=== PATIENT | female | born 2000 | race Caucasian/White ===

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

== ENCOUNTER 2020-08-12 12:07 | Emergency (ER) | payer MEDICAID, SELFPAY ==
[2020-08-12 12:08] VITALS: BP 121/77; PULSE 87; RESP 16; TEMP 37.2; O2SAT 100; BMI 29.0
--- NOTE | 2020-08-12 12:38 | ED.VIS.GEN ---
History of Present Illness Chief Complaint: General Illness Informant: Patient Onset: Days Context: Sudden Onset Timing: Continuous Quality: Upper viral respiratory symptoms with loss of taste and smell Location: Respiratory Current Severity: Mild Maximum Severity: Moderate Worsened by: Dyspnea on exertion Relieved by: Nothing Associated Symptoms: Subjective fever, arthralgia no energy Narrative: Patient is a 20-year-old who presents because of lack of energy, subjective fever, rhinorrhea, loss of taste and smell, cough, shortness of breath and dyspnea on exertion. Onset of illness 2 days ago. Onset of loss of taste and smell within the past 24 hours. She states she wears her mask at all times. She does work. She denies GI symptoms. She denies symptoms. She denies photophobia, neck pain or neck stiffness. Prior similar symptoms: No Recent Illness/Hospitalization: No - Past Medical History (1) No significant past medical history Status: Acute Past Medical History - Allergies and Home Meds Allergies/Adverse Reactions: Allergies No Known Allergies Allergy (Verified 08/12/20 12:16) Primary Care Physician: Niki Whitman NP, WAREHOUSE PRICING AND INVENTORY CLERK-C [Primary Care Provider] - Prior records reviewed: Yes Past Medical History: None Surgical History: no surgical history Lives: With Family Smoking Status: Never smoker Alcohol: None Drugs: None Review of Systems General: Reports: Fever, Malaise, Subjective. Denies: Chills, Sweats, Weight loss Eyes: Denies: Visual changes - bilaterally, Blurred Vision - bilaterally ENT: Reports: Rhinorrhea, - - Of taste and smell. Denies: Bilateral ear pain, Sore throat Cardiovascular: Denies: Chest pain, Palpitations Respiratory: Reports: Dyspnea, Cough, Dyspnea on exertion. Denies: Sputum, Orthopnea, Paroxysmal nocturnal dyspnea Gastrointestinal: Denies: Abdominal pain, Nausea, Vomiting, Diarrhea, Melena, Hematochezia Genitourinary: Denies: Dysuria, Hematuria, Frequency Musculoskeletal: Reports: Myalgias, Neck pain, Back pain, Swelling, Extremity Pain. Denies: Arthralgias Skin: Denies: Rash, Wounds Neurological: Reports: Weakness. Denies: Parasthesia, Numbness Endocrine: Denies: Polyuria, Polydipsia Hematologic: Denies: Easy bruising Physical Exam Vital Signs/Narrative: Vital Signs Temp Pulse Resp BP Pulse Ox 08/12/20 12:08 98.9 F 87 16 121/77 H 100 Inital Vital Signs reviewed: Yes General: Well nourished, Well developed, No Acute Distress, - - Appears ill but not toxic. Head: Normocephalic, Atraumatic Eyes: Perrl, EOMI. Negative for: Pale conjunctiva, Scleral icterus ENT: Moist mucous membranes, No rhinorrhea, TM's clear Neck: Supple, Nontender, No lymphadenopathy, No JVD Cardiovascular: Regular rate, Regular rhythm, No murmurs, Normal S1, Normal S2 Respiratory: No distress, CTA bilaterally, Chest nontender Abdomen: Soft, Nontender, Nondistended, Normal bowel sounds Back: Nontender, Normal Inspection. Negative for: CVA tenderness Extremities: Nontender, No edema Skin: Normal color, No rash, No Trauma. Negative for: Cyanosis, Diaphoresis, Jaundice Neurological: Alert, Oriented x3, Cranial nerves II-XII grossly intact, Normal Strength, Normal Sensation Psychological: Normal affect, Normal Mood Diagnostic/Tx/Re-eval Chest X-Ray - ED: 1 View, Read by ED Physician, Normal, Heart, Lungs, Mediastinum, Bony Structures, No Acute Disease - Rhythm Strip Rhythm Strip: Sinus Rhythm Rate: 82 Ectopy: None - Medical Decision Making Patient presents with viral upper respiratory symptoms. With loss of taste and smell patient in all probability has Covid. Because she complains of dyspnea dyspnea exertion chest x-ray was obtained. Covid test was obtained. Since patient vital signs are essentially unremarkable and she is not hypoxic with normal chest x-ray be discharged home to self quarantine and appropriate home instructions for Covid. She was told she has Covid. She has Covid even if her Covid test is negative since there are false negatives. Patient has symptoms that are consistent with Covid. ED Disposition - Plan for ED Patient: Disposition: Home or Assisted Living Diagnosis: COVID-19 virus infection Referrals: Niki Whitman NP, WAREHOUSE PRICING AND INVENTORY CLERK-C [Primary Care Provider] - As Needed Additional Instructions: 1. If you have increased shortness of breath, unable to walk from room to room return to the emergency department. 2. You need to self quarantine for 10 days. Even if you have a negative Covid test you do have Covid based on your symptoms.
--- NOTE | 2020-08-12 13:15 | RAD_ITS ---
STUDY: X-RAY CHEST REASON FOR EXAM: Female, 20 years old. Loss of taste and smell, no other symptoms TECHNIQUE: Single AP portable view of the chest. COMPARISON: Comparison is made with prior study dated 04/12/2018. FINDINGS: The lungs are clear and expanded. There is no demonstrated pleural abnormality. Normal size heart. Normal mediastinum and sulaiman. Normal visualized pulmonary arteries. Normal visualized aortic arch and descending thoracic aorta. Normal visualized thoracic spine. Normal visualized ribs, clavicles, and shoulders. There is no demonstrated abnormality of the visualized soft tissue structures of the upper abdomen. RAD/Chest 1 View (Portable) IMPRESSION: Normal x-ray examination of the chest. Electronically Signed: Mauro Baird, at 13:28 EST , Service support ,
[2020-08-12 15:35] VITALS: BP 119/76; PULSE 78; RESP 18
--- NOTE | 2020-08-12 15:35 | NURSING ---
did not want blood culture drawn
== END 2020-08-12 15:20 | disposition home or self-care (01) ==
PROVIDERS: Emergency Provider Emergency Medicine; PCP Nurse Practitioner Adult Health
DX: U07.1 COVID-19 (principal)
CPT/HCPCS: 71045; 87635; 99282; U0003

== ENCOUNTER 2022-03-29 16:29 | Emergency (ER) | payer MEDICAID, SELFPAY ==
[2022-03-29 16:30] VITALS: BP 129/89; PULSE 81; RESP 16; TEMP 37.3; O2SAT 99; BMI 28.5
[2022-03-29 16:32] VITALS: BP 129/89; PULSE 81; RESP 16; TEMP 37.3; O2SAT 99
--- NOTE | 2022-03-29 16:40 | EX.ED.DYSGE1 ---
HPI History of Present Illness Chief Complaint: Abscess Detail of Chief Complaint: Swelling to rectal area x3 days Informant: patient Narrative Narrative: Patient presents with a swelling to her rectal area x3 days. Patient unsure if she has an abscess. Patient denies fever or recent illness. Patient states it is near the anus. Prior similar symptoms: No PFSH PFSH Home Medications hydrocortisone acetate 25 mg rectal suppository (Anusol-HC) 25 mg RI QHS 4 days #12 ea 03/29/22 [Rx Last Taken Unknown] Allergy/AdvReac Type Severity Reaction Status Date / Time No Known Allergies Allergy Verified 08/12/20 12:16 Social History Smoking Status: Current every day smoker tobacco type: e-cigarettes ROS ROS ED Review of Systems ROS Unobtainable: other Constitutional Constitutional ED: Reports lethargy; Denies chills, fever(s), sweats or weight loss Eyes Eyes: Denies blurry vision, change in vision or diplopia ENT ENT ED: Denies rhinorrhea or sore throat Cardiovascular Cardiovascular: Reports chest pain and racing heartbeat; Denies orthopnea Respiratory/Chest Respiratory/Chest: Reports dyspnea and dyspnea on exertion; Denies cough, orthopnea or sputum Gastrointestinal Gastrointestinal: Reports other Details: Perirectal mass Genitourinary Genitourinary ED: Denies dysuria, hematuria or urinary frequency Musculoskeletal Musculoskeletal: Denies arthralgias, back pain, myalgias or neck pain Integumentary Denies abscess, Abrasions or rash Neurologic Neurologic: Denies headache(s) or weakness Psychiatric Psychiatric: Denies anxiety, depression or suicidal thoughts Endocrine Endocrinology: Denies polydipsia, polyphagia or polyuria Hematologic/Lymphatic Hematologic/Lymphatic: Denies easy bleeding, easy bruising or lymphadenopathy Allergic/Immunologic Allergic/Immunologic ED: Denies mouth swelling, tongue swelling or urticaria EXAM Physical Exam Const Vital Signs: 03/29/22 16:30 03/29/22 16:32 Temperature 99.2 F H 99.2 F H Temperature Source Temporal Temporal Pulse Rate 81 81 Respiratory Rate 16 16 Blood Pressure 129/89 H 129/89 H Blood Pressure Mean 102 102 Pulse Ox 99 99 Oxygen Delivery Method Room Air Room Air Positive well nourished and well developed General Appearance ED: well developed and NAD HEENT Reports TM's clear and moist mucous membranes normocephalic and atraumatic; Negative for trauma or tenderness Tympanic Membrane ED: Yes TM's clear Eyes PERRL and EOMs intact bilaterally General Eye ED: Negative for pale conjunctiva or scleral icterus Neck no lymphadenopathy, supple and no JVD General: Negative for tenderness Chest Wall inspection of chest normal and palpation of chest normal Chest: Negative for tenderness Resp normal respiratory effort and clear to auscultation bilaterally Effort and Inspection: Negative for respiratory distress or pain with movement Auscultation: Negative for rhonchi, wheezes or diminished lung sounds Cardio regular rate, regular rhythm, S1 normal heart sound, S2 normal heart sound and no murmurs Peripheral Pulses: pulses 2+ throughout GI normal to inspection, nondistended, normoactive bowel sounds, soft to palpation, non-tender, non-distended and no masses GI Narrative: On rectal exam patient noted to have a thrombosed hemorrhoid at the 12 o'clock position that is tender to palpation. No abscesses noted. Back/Spine no CVA tenderness and no thoracic nor lumbar tenderness Extremity normal to inspection General Extremety ED: Negative for edema General Extremity: Negative for edema Neuro oriented x3, CN's II-XII intact bilaterally, no sensory deficits noted and gait normal Sensorium / Orientation: awake, alert, oriented to person, oriented to place and oriented to time Motor Exam: strength 5/5 throughout and strength abnormal Psych mental status grossly normal Skin no rashes or lesions noted and no wounds MDM MDM MDM Narrative Medical decision making narrative: I discussed with patient treatment options including Anusol suppositories and sitz bath's versus incision and drainage and removal of thrombosed clot from hemorrhoid. I recommended incision and drainage patient in agreement. Patient will be given a prescription for Anusol. Patient advised on sitz bath's. Patient to follow-up with primary care physician as needed. Procedures Other Procedures Procedure(s): Patient agreed to incision and drainage of thrombosed hemorrhoid. Area of the skin cleansed with Shur-Clens and using 1% lidocaine total of 1 cc used to infiltrate the skin of the hemorrhoid. Using an 11 blade a small 1 cm incision was made and clot was expressed from the hemorrhoid. Dressing was applied. Patient Toller procedure well. Discharge Plan Triage Chief Complaint: Abscess ED Provider: Moustapha Kirk Dx/Rx/DC Orders Clinical Impression: External hemorrhoid, thrombosed Instructions: Thrombosed Hemorrhoids, ED Hemorrhoids Prescriptions: New hydrocortisone acetate [Anusol-HC] 25 mg suppository 25 mg RI QHS 4 Days Qty: 12 0RF Primary Care Provider: Niki Whitman NP Referrals: Niki Whitman NP, SITE OPERATIONS MANAGER-C [Primary Care Provider] - 3-5 Days Disposition Disposition: Home, Self Care
== END 2022-03-29 17:02 | disposition home or self-care (01) ==
PROVIDERS: Emergency Provider Emergency Medicine; PCP Nurse Practitioner Adult Health; Visit Provider Emergency Medicine
DX: K64.5 Perianal venous thrombosis (principal); F17.290 Nicotine dependence, other tobacco product, uncomplicated
CPT/HCPCS: 10060; 99283

== ENCOUNTER 2022-10-15 09:03 | Emergency (ER) | payer MEDICAID, SELFPAY ==
[2022-10-15 09:04] VITALS: BP 142/86; PULSE 126; RESP 17; TEMP 36.4; O2SAT 100; BMI 25.7
--- NOTE | 2022-10-15 09:18 | EDS_ITS ---
HPI HPI - GI History of Present Illness Chief Complaint: Flank Pain Narrative Narrative: 22-year-old female presenting with left-sided abdominal pain/flank pain and headache intermittently for a week. She states that she has been taking ibuprofen throughout the week and states this does help but then it returns. She states she has been nauseous but not vomiting. She denies diarrhea or constipation and states her stool is normal. She denies urinary complaints or vaginal complaints. She states today she had a fever at home of 101 ?F. She took ibuprofen. Patient denies any previous abdominal surgeries. She denies any medical problems. No history of kidney stones or urinary tract infections. She denies cough, congestion. She does state that when she got up today to check her temperature she felt like she was going to buckle. PFSH PFSH Medical History no medical history Home Medications hydrocortisone acetate 25 mg rectal suppository (Anusol-HC) 25 mg [place] QHS 4 days #12 ea 03/29/22 [Rx Last Taken Unknown] sulfamethoxazole 800 mg-trimethoprim 160 mg tablet (Bactrim DS) 1 tab PO BID #22 tabs 10/15/22 [Rx Last Taken Unknown] Allergy/AdvReac Type Severity Reaction Status Date / Time No Known Allergies Allergy Verified 10/15/22 09:06 Family History no significant family his Surgical History no surgical history Social History Smoking Status: Current every day smoker tobacco type: e-cigarettes ROS ROS ED Constitutional Constitutional ED: Reports chills and fever(s) ENT ENT ED: Denies rhinorrhea or sore throat Cardiovascular Cardiovascular: Denies chest pain or palpitations Respiratory/Chest Respiratory/Chest: Denies cough or dyspnea Gastrointestinal Gastrointestinal: Reports abdominal pain and nausea; Denies constipation or diarrhea Genitourinary Genitourinary ED: Denies dysuria, hematuria or urinary frequency Musculoskeletal Musculoskeletal: Reports back pain; Denies arthralgias Integumentary Denies abscess or Abrasions Neurologic Neurologic: Reports headache(s) Psychiatric Psychiatric: Denies anxiety or depression EXAM Physical Exam Const Vital Signs: 10/15/22 09:04 10/15/22 11:24 Temperature 97.6 F L 98.8 F Temperature Source Temporal Oral Pulse Rate 126 H 93 Respiratory Rate 17 16 Blood Pressure 142/86 H 105/64 Blood Pressure Mean 104 77 Pulse Ox 100 97 Oxygen Delivery Method Room Air Room Air Positive well nourished General Appearance ED: NAD; Negative for pallor HEENT Reports moist mucous membranes atraumatic Eyes PERRL and EOMs intact bilaterally Neck no lymphadenopathy Resp normal respiratory effort and clear to auscultation bilaterally Auscultation: Negative for rales, rhonchi or wheezes Cardio regular rhythm Rate: tachycardic GI Palpation: tender LLQ and RLQ Back/Spine no CVA tenderness Neuro CN's II-XII intact bilaterally Sensorium / Orientation: alert Motor Exam: strength 5/5 throughout Psych mental status grossly normal Skin no wounds General Skin Exam: Negative for jaundice or pallor MDM MDM MDM Narrative Medical decision making narrative: 22-year-old female presenting with left flank/abdominal pain x1 week. She is also had a headache intermittently. She denies urinary or vaginal complaints. She denies diarrhea or constipation. She denies vaginal complaints. No history of previous abdominal surgeries. She developed a fever of 101 ?F today but denies cough or cold symptoms. On examination she is tender all over her abdomen however she is most tender in the left lower quadrant. There is no CVA tenderness noted on exam. Patient's vital signs show that she is tachycardic at 126. IV line was established and patient was given a liter of IV fluids. She was also given morphine and Zofran for pain and nausea. CBC to assess hemoglobin, hematocrit, platelets, differential. CMP for renal function and electrolytes, liver function. Lipase to assess for pancreatitis. Urinalysis to assess for urinary tract infection versus occult blood. hCG will be obtained to rule out although the patient states he does not believe she could be . CBC does not indicate an elevated white blood cell count at 10.4. Hemoglobin hematocrit are stable. Platelets are normal to 83. Renal function and electrolytes appear to be normal. Total bilirubin is slightly elevated 1.2 however other LFTs are normal. Glucose and anion gap are normal. Urinalysis shows 500 leukocyte esterase, 50-100 white blood cells, 5-10 squamous epithelial cells with 2+ bacteria. hCG is negative. CT of the abdomen pelvis is obtained with IV contrast due to history of diverticulitis. This does not show evidence of diverticulitis. He does show a left-sided ovarian cyst. I will given the patient is having abdominal pain, fever tenderness, back pain I will treat her as pyelonephritis. She started on Bactrim with first dose in the ED. Patient alternate Tylenol and ibuprofen at home. Return precautions discussed. Impression: 1. Acute pyelonephritis 2. Abdominal pain 3. Generalized weakness Lab Data Attestation: I reviewed the patient's lab results. Labs: Laboratory Results - last 24 hr 10/15/22 10/15/22 10/15/22 09:35 09:35 09:35 WBC 10.4 RBC 4.46 Hgb 13.6 Hct 39.4 MCV 88.3 MCH 30.5 MCHC 34.5 RDW Std Deviation 37.6 RDW Coeff of Jessika 11.7 Plt Count 283 MPV 9.9 Immature Gran % (Auto) 0.300 Neut % (Auto) 87.6 H Lymph % (Auto) 5.6 L [place] % (Auto) 6.1 Eos % (Auto) 0.1 Baso % (Auto) 0.3 Absolute Neuts (auto) 9.1 H Absolute Lymphs (auto) 0.58 L Nucleated RBC % 0 Differential Comment COMMENT Sodium 137 Potassium 3.6 Chloride 103 Carbon Dioxide 25.0 Anion Gap 9 BUN 9 Creatinine 0.75 Estim Creat Clear Calc 105.87 Est GFR (MDRD) Af Amer 123 Est GFR (MDRD) Non-Af 102 BUN/Creatinine Ratio 12.0 Glucose 101 Calcium 8.9 Total Bilirubin 1.20 H AST 14 L ALT 24 Alkaline Phosphatase 57 Total Protein 7.4 Albumin 3.9 Globulin 3.5 Albumin/Globulin Ratio 1.1 Lipase 111 Urine Color Yellow Urine Clarity Cloudy Urine pH 8.0 Ur Specific [place] 1.010 Urine Protein 15 H Urine Glucose (UA) Normal Urine Ketones Negative Urine Occult Blood 10 H Urine Nitrite Negative Urine Bilirubin Negative Urine Urobilinogen Normal Ur Leukocyte Esterase 500 H Urine RBC 0-5 SEEN Urine WBC 50-100 SEEN Ur Squamous Epith Cells 5-10 SEEN Urine Bacteria 2+ Urine Mucus 0 SEEN Urine Test Negative Radiography Diagnostic Testing: Clinical Impression(s) from Imaging Studies Abdomen/Pelvis CT 10/15/22 09:56 IMPRESSION: Small left ovarian cyst. IUD is seen within the endometrium. Electronically Signed: Mauro Baird MD at 10:37 EST , Discharge Plan Triage Chief Complaint: Flank Pain ED Provider: Armaan Covington Dx/Rx/DC Orders Instructions: ED Pyelonephritis, Female (Adult) Prescriptions: New sulfamethoxazole-trimethoprim [Bactrim DS] 800-160 mg tablet 1 tab PO BID Qty: 22 0RF No Action hydrocortisone acetate [Anusol-HC] 25 mg suppository 25 mg [place] QHS 4 Days Qty: 12 0RF Primary Care Provider: Niki Whitman NP Referrals: Niki Whitman NP, COUNCILPERSON-C [Primary Care Provider] - Disposition Disposition: Home, Self Care
[2022-10-15] MEDS: 0.9% Normal Saline 1,000 ML 1000 ML IV (09:35)
[2022-10-15] MEDS: Ondansetron 4 MG/2 ML Vial IV (09:36)
[2022-10-15] MEDS: Morphine 4 MG/ML Syringe IV (09:37)
[2022-10-15 09:50] LABS: Mucous, Urine 0 SEEN /hpf (<or=2+)
[2022-10-15 09:52] LABS: Absolute Lymphocyte Count 0.58 X10^3/uL (0.83-4.51); Absolute Neutrophil Count 9.1 X10^3/uL (2.0-7.7); Basophil# 0.03 X10^3/uL; Basophil% 0.3 % (0-1); Eosinophil# 0.01 X10^3/uL; Eosinophils% 0.1 % (0-5); Hematocrit 39.4 % (37-47); Hemoglobin 13.6 g/dL (12.0-15.0); Internal QC Validated? YES +Cl - CLEAR BKGD; Lymphocyte # 0.58 X10^3/ul (0.83-4.51); Lymphocyte % 5.6 % (19-41); Mean Corp Hgb Conc 34.5 g/dL (32-36); Mean Corpuscular Hgb 30.5 pg (27.0-32.0); Mean Corpuscular Volume 88.3 fL (81-99); Mean Platelet Vol. 9.9 fl (6.2-12.0); Monocyte# 0.63 X10^3/uL; Monocyte% 6.1 % (0-10); NRBC Flagged by Analyzer 0 % (0-5); Neutrophil # 9.12 X10^3/uL (2.7-7.7); Neutrophil % 87.6 % (47-70); POSITIVE DIFFERENTIAL YES; Platelet Count 283 K/mm3 (150-450); RBC Distribution Width CV 11.7 % (11.6-14.6); RBC Distribution Width SD 37.6 fl (35.1-43.9); Red Blood Count 4.46 M/mm3 (4.2-5.4); White Blood Count 10.4 K/mm3 (4.4-11.0)
[2022-10-15 09:53] LABS: Color, Urine Yellow (Yellow); Glucose, Dipstick Normal (Normal); Ketone-Dipstick Negative (Negative); Leukocyte Esterase-Dipstick 500 /ul (Negative); Nitrite-Dipstick Negative (Negative); Occult Blood-Urine 10 /ul (Negative); Protein-Dipstick 15 mg/dl (Negative); Urine Bilirubin Dipstick Negative (Negative); Urine Clarity Cloudy (Clear); Urine Urobilinogen Normal (Normal)
[2022-10-15 09:55] LABS: Pregnancy, Urine Negative Negative
--- NOTE | 2022-10-15 09:56 | CT_ITS ---
STUDY: CT ABDOMEN AND PELVIS WITH CONTRAST REASON FOR EXAM: Female, 22 years old. Left flank pain RADIATION DOSAGE (If Supplied By Facility): CTDIvol = ( 8.29 ) mGy, DLP = ( 345.93 ) mGycm TECHNIQUE: Transaxial images were obtained from the dome of the diaphragm to the symphysis pubis without oral contrast. IV 100mL Isovue-370 was administered. Sagittal and coronal images were reconstructed. Individualized dose optimization techniques were used for this CT. COMPARISON: Comparison is made with prior study dated 04/12/2018. FINDINGS: The visualized lung bases are unremarkable. The visualized portions of the heart are within normal limits. Normal liver. Normal gallbladder and extrahepatic biliary system. Normal spleen. Normal pancreas. Normal bilateral adrenal glands. Normal right kidney. Normal left kidney. Normal visualized stomach. Normal small intestine. Normal colon. The appendix is visualized and appears normal. Normal abdominal aorta. Normal inferior vena cava. Normal retroperitoneum. Normal urinary bladder. There is a 2.6 x 1.5 cm cyst in the left ovary. As directed is seen within the endometrium. Normal abdominal wall. Normal osseous structures. CT/Abdomen/Pelvis W IV Cont ONLY IMPRESSION: Small left ovarian cyst. IUD is seen within the endometrium. Electronically Signed: Mauro Baird MD at 10:37 EST ,
[2022-10-15 10:00] LABS: Bacteria 2+ /hpf (None Seen); Squamous Epithelial Cells - UA 5-10 SEEN /hpf (5-10); White Blood Cells 50-100 SEEN /hpf (0-5)
[2022-10-15 10:01] LABS: Red Blood Cells-Urine 0-5 SEEN /hpf (0-5)
[2022-10-15 10:10] LABS: ALB/GLOB Ratio 1.1 RATIO (0.9-2.4); AST(SGOT) 14 U/L (15-37); Alanine Aminotransfer ALT/SGPT 24 U/L (13-56); Albumin, Serum 3.9 g/dL (3.2-5.0); Alkaline Phosphatase 57 U/L (45-117); Anion Gap 9 (5-15); BUN 9 mg/dL (7-18); Calcium,Total 8.9 mg/dL (8.5-10.1); Chloride 103 mmol/L (98-107); Creatinine, Serum 0.75 mg/dL (0.55-1.02); EST Glomerular Filtration Rate 102 mL/min (>60); Est Glom Filt Rate - Afr Amer 123 mL/min (>60); Estimated Creatinine Clearance 105.87 ml/min; Globulin 3.5 g/dL (2.2-4.2); Glucose 101 mg/dL (74-106); Lipase 111 U/L (73-393); Potassium 3.6 mmol/L (3.5-5.1); Protein, Total 7.4 g/dL (6.4-8.2); Sodium Level 137 mmol/L (136-145)
[2022-10-15 10:32] LABS: Differential Indicated SCAN CRITERIA MET
[2022-10-15 11:24] VITALS: BP 105/64; PULSE 93; RESP 16; TEMP 37.1; O2SAT 97
[2022-10-15 12:12] VITALS: RESP 17
[2022-10-15] MEDS: Smz/Tmp Ds Tablet 1 TABLET PO (12:13)
== END 2022-10-15 12:16 | disposition home or self-care (01) ==
PROVIDERS: Emergency Provider Student in an Organized Health Care Education/Training Program; PCP Nurse Practitioner Adult Health; Visit Provider Student in an Organized Health Care Education/Training Program
DX: N10 Acute pyelonephritis (principal); R10.9 Unspecified abdominal pain; R53.1 Weakness; F17.290 Nicotine dependence, other tobacco product, uncomplicated
CPT/HCPCS: 74177; 80053; 81001; 81025; 83690; 85025; 87077; 87086; 87088; 87186; 96361; 96374; 96375; 99284; J7030; J2405

== ENCOUNTER 2023-07-22 22:10 | Emergency (ER) | payer MEDICAID, SELFPAY ==
[2023-07-22 22:11] VITALS: BP 124/74; PULSE 103; RESP 18; TEMP 36.6; O2SAT 99; BMI 30.8
--- NOTE | 2023-07-22 22:42 | US_ITS ---
EXAM: US , TRANSVAGINAL CLINICAL INDICATION: cramping, early preg TECHNIQUE: Real-time transvaginal obstetrical ultrasound of the maternal pelvis and a first trimester with image documentation. Transvaginal imaging was used for better evaluation of the fetus and adnexa. COMPARISON: No relevant prior studies available. FINDINGS: GESTATION: There is a gestational sac with mean sac diameter 1.9 cm age 6 weeks 6 days. There is a 4 mm yolk sac. pole crown-rump length of 5 mm age 6 weeks 3 days. heart rate is 137 bpm. PLACENTA/AMNIOTIC FLUID: There is a 1.2 x 1.3 x 0.5 cm hypoechoic structure in the uterus compatible subchorionic hemorrhage. UTERUS/CERVIX: Uterus measures 9.5 x 4.5 x 7.9 cm. No myometrial mass. OVARIES: Left ovary measures 3.5 x 1.9 x 3.0 cm. There is a 2.1 x 2.1 x 1.6 cm thick-walled cyst in the left ovary pelvic wall. The right ovary measures 2.7 x 1.2 x 1.8 cm. No mass. FREE FLUID: No free fluid. US/Transvaginal w/Preg US IMPRESSION: Intrauterine gestation with an average ultrasound age of 6 weeks 5 days and ultrasound estimated due date of 03/11/2024. heart rate is 137 bpm. There is a small hypoechoic area in the uterus compatible with a subchorionic hemorrhage. Electronically Signed: Pablo De La Rosa MD at 23:49 EDT ,
[2023-07-22 22:55] LABS: Mucous, Urine 0 SEEN /hpf (<or=2+); Red Blood Cells-Urine 0 SEEN /hpf (0-5)
[2023-07-22] MEDS: 0.9% Normal Saline (1000mL) 1,000 ML 999 ML IV (22:58)
[2023-07-22 23:00] LABS: Color, Urine Yellow (Yellow); Glucose, Dipstick Normal (Normal); Ketone-Dipstick Negative (Negative); Leukocyte Esterase-Dipstick Negative /ul (Negative); Nitrite-Dipstick Negative (Negative); Occult Blood-Urine Negative /ul (Negative); Protein-Dipstick Negative (Negative); Specific Gravity, Urine 1.015 (1.002-1.030); Urine Bilirubin Dipstick Negative (Negative); Urine Clarity Clear (Clear); Urine Urobilinogen 1 mg/dl (Normal); Urine pH 6.5 (5.0 - 8.0)
[2023-07-22 23:05] LABS: Absolute Lymphocyte Count 1.74 X10^3/uL (0.83-4.51); Absolute Neutrophil Count 10.7 X10^3/uL (2.0-7.7); Basophil# 0.04 X10^3/uL; Basophil% 0.3 % (0-1); Eosinophil# 0.06 X10^3/uL; Eosinophils% 0.5 % (0-5); Hemoglobin 12.1 g/dL (12.0-15.0); Lymphocyte # 1.74 X10^3/ul (0.83-4.51); Lymphocyte % 13.1 % (19-41); Mean Corp Hgb Conc 33.6 g/dL (32-36); Mean Corpuscular Hgb 30.2 pg (27.0-32.0); Mean Corpuscular Volume 89.8 fL (81-99); Mean Platelet Vol. 9.4 fl (6.2-12.0); Monocyte# 0.72 X10^3/uL; Monocyte% 5.4 % (0-10); NRBC Flagged by Analyzer 0 % (0-5); Neutrophil # 10.65 X10^3/uL (2.7-7.7); Neutrophil % 80.2 % (47-70); Platelet Count 287 K/mm3 (150-450); RBC Distribution Width CV 11.9 % (11.6-14.6); RBC Distribution Width SD 39.3 fl (35.1-43.9); Red Blood Count 4.01 M/mm3 (4.2-5.4); White Blood Count 13.3 K/mm3 (4.4-11.0)
[2023-07-22 23:17] LABS: Bacteria RARE /hpf (None Seen); Squamous Epithelial Cells - UA 0-5 SEEN /hpf (5-10); White Blood Cells 0-5 SEEN /hpf (0-5)
[2023-07-22 23:47] VITALS: BP 121/71; PULSE 88; RESP 16; O2SAT 98
--- NOTE | 2023-07-23 00:07 | EX.ED.DYSGE1 ---
HPI History of Present Illness Chief Complaint: Abd Pain Informant: patient Narrative Narrative: Patient is a 23-year-old female G2, P1 with positive home test presenting with flu/cold symptoms as well as cramping lower abdominal pain. Patient states she is 6 weeks by last menstrual period which she reports is May 16. She had a positive home test 2 weeks ago. She has an appointment to see OB on August 22 but has not had any care up to this point. Patient states that over the past few days she has been feeling like she is coming out with a cold with sore throat nasal congestion. She took a home COVID test earlier today that was negative. She does this morning she had some vomiting and diarrhea as well as nasal congestion and worsening sore throat. She states she is also been developing increased fatigue, headache and some lower back pain and lower abdominal cramps. This week she also started developing what she describes as morning sickness. Patient was concerned because she does know what she can take in for her discomforts and cold symptoms and also family members told her is probably too soon for her to have symptoms. She denies any vaginal bleeding or abnormal vaginal discharge. Denies any urinary symptoms. No other complaints at this time. PFSH PFSH Medical History no medical history Home Medications vit no.95-ferrous fumarate 28 mg-folic acid 800 mcg tablet () 1 tab PO DAILY 07/22/23 [History Last Taken Unknown] Allergy/AdvReac Type Severity Reaction Status Date / Time No Known Allergies Allergy Verified 07/22/23 22:11 Social History Smoking Status: Current every day smoker tobacco type: e-cigarettes ROS ROS ED Constitutional Constitutional ED: Reports other Details: Positive fatigue ; Denies chills or fever(s) ENT ENT ED: Reports rhinorrhea, sore throat and other Details: nasal congestion Cardiovascular Cardiovascular: Denies chest pain Respiratory/Chest Respiratory/Chest: Denies dyspnea Gastrointestinal Gastrointestinal: Reports abdominal pain, diarrhea, nausea and vomiting Genitourinary Genitourinary ED: Reports LMP (females 10-50) Details: Comment: (05/16/2023); Denies dysuria Musculoskeletal Musculoskeletal: Denies arthralgias Integumentary Denies rash Neurologic Neurologic: Reports headache(s) EXAM Physical Exam Const Vital Signs: 07/22/23 22:11 07/22/23 23:47 Temperature 97.8 F Temperature Source Temporal Pulse Rate 103 H 88 Respiratory Rate 18 16 Blood Pressure 124/74 H 121/71 H Blood Pressure Mean 90 87 Pulse Ox 99 98 Oxygen Delivery Method Room Air Positive well nourished and well developed General Appearance ED: well developed and NAD HEENT Reports TM's clear and moist mucous membranes HEENT Narrative: Mild nasal congestion present. oropharynx shows some mild injection but no edema appreciated. Normal tonsils with no exudate. Uvula is midline. Tympanic Membrane ED: Yes TM's clear Eyes PERRL Neck supple and no JVD Chest Wall inspection of chest normal and palpation of chest normal Resp normal respiratory effort and clear to auscultation bilaterally Cardio regular rate and regular rhythm GI normal to inspection, nondistended, normoactive bowel sounds and non-tender Back/Spine no CVA tenderness Extremity normal to inspection Neuro oriented x3 Sensorium / Orientation: alert Motor Exam: Negative for general weakness Psych mental status grossly normal Skin no rashes or lesions noted MDM MDM MDM Narrative Medical decision making narrative: Patient is evaluated for couple days of flu/cold symptoms as well as positive test and now abdominal cramping. She appears nontoxic and in no acute distress. Upon arrival she is mildly tachycardic with a heart rate of 103. His exam is quite benign but consistent with a viral syndrome. Abdomen is soft and nontender low suspicion for ruptured ectopic. Patient is not having any reported vaginal bleeding or vaginal discharge. Differential includes viral syndrome, dehydration, ectopic and urinary tract infection. Patient is given IV fluids with some improvement of her symptoms. She is also ordered Tylenol. Bedside ultrasound performed by myself shows a gestational sac I do not see obvious pole or heart rate. Formal ultrasound obtained to ensure location of . This shows a single intrauterine gestation measuring approximately 6 weeks 5 days with heart rate of 137 and a small subchorionic hemorrhage. Patient is counseled on these findings. CBC shows a mild leukocytosis of 13.3 which could be reactive or associate with early . Her hemoglobin is normal at 12.1. CMP and lipase are pending as well as quant for monitoring/establishing a baseline at this point. Anticipate if remainder of work-up is negative patient to be discharged home with symptomatic treatment including Tylenol, Mucinex as needed and cough drops. Patient agreeable this plan of care. She will follow-up with [facility]. Given return precautions to the ER. Prior labs reviewed which shows that patient is Rh+ and does not require RhoGAM. She is also not require RhoGAM because she is not have any vaginal bleeding. Lab Data Attestation: I reviewed the patient's lab results. Labs: Laboratory Results - last 24 hr 07/22/23 07/22/23 22:24 22:55 WBC 13.3 H RBC 4.01 L Hgb 12.1 Hct 36.0 L MCV 89.8 MCH 30.2 MCHC 33.6 RDW Std Deviation 39.3 RDW Coeff of Jessika 11.9 Plt Count 287 MPV 9.4 Immature Gran % (Auto) 0.500 Neut % (Auto) 80.2 H Lymph % (Auto) 13.1 L [place] % (Auto) 5.4 Eos % (Auto) 0.5 Baso % (Auto) 0.3 Absolute Neuts (auto) 10.7 H Absolute Lymphs (auto) 1.74 Nucleated RBC % 0 Sodium 139 Potassium 3.8 Chloride 107 Carbon Dioxide 26.0 Anion Gap 6 BUN 8 Creatinine 0.63 Estim Creat Clear Calc 114.88 Est GFR (MDRD) Af Amer 151 Est GFR (MDRD) Non-Af 125 BUN/Creatinine Ratio 12.7 Glucose 106 Calcium 8.8 Total Bilirubin 0.30 AST 13 L ALT 20 Alkaline Phosphatase 47 Total Protein 6.5 Albumin 3.5 Globulin 3.0 Albumin/Globulin Ratio 1.2 Lipase 33 Urine Color Yellow Urine Clarity Clear Urine pH 6.5 Ur Specific [place] 1.015 Urine Protein Negative Urine Glucose (UA) Normal Urine Ketones Negative Urine Occult Blood Negative Urine Nitrite Negative Urine Bilirubin Negative Urine Urobilinogen 1 H Ur Leukocyte Esterase Negative Urine RBC 0 SEEN Urine WBC 0-5 SEEN Ur Squamous Epith Cells 0-5 SEEN Urine Bacteria RARE Urine Mucus 0 SEEN Radiography Diagnostic Testing: Clinical Impression(s) from Imaging Studies Obstetrics Ultrasound 07/22/23 22:42 IMPRESSION: Intrauterine gestation with an average ultrasound age of 6 weeks 5 days and ultrasound estimated due date of 03/11/2024. heart rate is 137 bpm. There is a small hypoechoic area in the uterus compatible with a subchorionic hemorrhage. Electronically Signed: Pablo De La Rosa MD at 23:49 EDT , Discharge Plan Triage Chief Complaint: Abd Pain Other Complaint: ED Provider: Jasmina Antoine Dx/Rx/DC Orders Clinical Impression: Acute viral syndrome, Normal first confirmed, Abdominal cramping affecting Instructions: ED Viral Syndrome (Adult), ED Established ... Prescriptions: No Action PNV cmb#95-ferrous fumarate-FA [] 28 mg iron- 800 mcg tablet 1 tab PO DAILY Primary Care Provider: Niki Whitman NP Referrals: Niki Whitman NP, [facility] [Primary Care Provider] - Activity Restrictions/Additional Instructions: Your ultrasound showed a single inside the uterus consistent with gestational age of 6 weeks and 5 days. There is a small subchorionic hemorrhage. 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 If you have further symptoms please call them to be seen sooner. Please make sure you are taking a vitamin (any [id number] is sufficient). You may take Mucinex, Tylenol (acetaminophen), cough drops and Chloraseptic spray to help with symptoms.
[2023-07-23] MEDS: Acetaminophen 325 MG Tablet 650 MG PO (00:11)
[2023-07-23 00:27] LABS: ALB/GLOB Ratio 1.2 RATIO (0.9-2.4); AST(SGOT) 13 U/L (15-37); Alanine Aminotransfer ALT/SGPT 20 U/L (13-56); Albumin, Serum 3.5 g/dL (3.2-5.0); Alkaline Phosphatase 47 U/L (45-117); Anion Gap 6 (5-15); BUN 8 mg/dL (7-18); BUN/Creat Ratio 12.7 RATIO (10-20); Calcium,Total 8.8 mg/dL (8.5-10.1); Chloride 107 mmol/L (98-107); Creatinine, Serum 0.63 mg/dL (0.55-1.02); EST Glomerular Filtration Rate 125 mL/min (>60); Est Glom Filt Rate - Afr Amer 151 mL/min (>60); Estimated Creatinine Clearance 114.88 ml/min; Glucose 106 mg/dL (74-106); Lipase 33 U/L (13-75); Potassium 3.8 mmol/L (3.5-5.1); Protein, Total 6.5 g/dL (6.4-8.2); Sodium Level 139 mmol/L (136-145)
[2023-07-23 00:41] LABS: hCG Titer Quant., Serum 25759 mIU/mL (1-3)
== END 2023-07-23 00:48 | disposition home or self-care (01) ==
LOC: ED 22:49
PROVIDERS: Emergency Provider Emergency Medicine; PCP Nurse Practitioner Adult Health; Visit Provider Emergency Medicine
DX: O98.511 Other viral diseases complicating pregnancy, first trimester (principal); O26.891 Other specified pregnancy related conditions, first trimester; O99.331 Smoking (tobacco) complicating pregnancy, first trimester; B34.9 Viral infection, unspecified; F17.290 Nicotine dependence, other tobacco product, uncomplicated; Z3A.01 Less than 8 weeks gestation of pregnancy
CPT/HCPCS: 76817; 80053; 81001; 83690; 84702; 85025; 99284; J7030

== ENCOUNTER 2023-12-19 14:25 | Outpatient (CLI) | payer MEDICAID, SELFPAY ==
[2023-12-19 14:40] VITALS: BMI 33.5
--- NOTE | 2023-12-19 20:56 | OB.TRI.HP_ITS ---
HPI - General General Date of Admission: 12/19/23 Date of Service: 12/19/23 Chief Complaint: abdominal pain HPI Narrative MARIE ROMANO, is a 23 F who presents 2 para 1 with a EDC of 03/14/2024 at 27+ gestational weeks presents complaining of intermittent abdominal pain. She states it started when she was at work and it was about every 10 minutes she will get a twinge of pain. She took 325 mg of Tylenol and lay down it seemed to improve a little bit when she got back up and moved around more it started hurting worse again. She denied any vaginal bleeding leaking of fluid. She denies any nausea vomiting, or constipation. She had some diarrhea yesterday. She has been able to eat and drink normally today. She denies any flank pain or hematuria. She denies any dysuria. PFSH PFSH Medical History no medical history Home Medications vit no.95-ferrous fumarate 28 mg-folic acid 800 mcg tablet () 1 tab PO DAILY 07/22/23 [History Last Taken 12/19/23] acetaminophen 325 mg capsule 325 mg PO Q6H PRN pain 12/19/23 [History Last Taken 12/19/23] Allergy/AdvReac Type Severity Reaction Status Date / Time No Known Allergies Allergy Verified 12/19/23 14:41 Social History Smoking Status: Current every day smoker tobacco type: e-cigarettes History Elective abortions Hx Para 0 Spontaneous abortions Hx # Term Pregnancies Ectopic pregnancies Hx # Pregnancies Multiple births # of living children Physical Exam Narrative General: Awake alert no acute distress Abdomen: Soft nontender nondistended gravid, no rebound or guarding. No CVA te nderness. No hernias noted NST FHR Rate Baby A Baseline: 140 Variability:: Moderate Accelerations:: 15 x 15 Decelerations:: None NST Reactive:: Yes FHR Category:: Category I Uterine Activity:: no ctxs Assessment & Plan (1) 27 weeks gestation of : PLAN: 23-year-old patient with intermittent abdominal pain. No evidence of labor. May have had a viral syndrome resulting in diarrhea yesterday, may have had a touch of food poisoning. May be more musculoskeletal. Recommended bland diet, push fluids and rest. May use Tylenol or heat as needed. If fever, nausea vomiting or other symptoms occur or worsen acutely, she should return for reevaluation otherwise follow-up in the office as scheduled. (2) High risk multigravida in second trimester:
== END 2023-12-19 16:27 | disposition home or self-care (01) ==
LOC: WPOUT 14:31 → WP 14:32
PROVIDERS: PCP Nurse Practitioner Adult Health; Visit Provider Obstetrics & Gynecology
DX: O99.891 Other specified diseases and conditions complicating pregnancy (principal); O99.332 Smoking (tobacco) complicating pregnancy, second trimester; F17.290 Nicotine dependence, other tobacco product, uncomplicated; R10.9 Unspecified abdominal pain; Z3A.27 27 weeks gestation of pregnancy
CPT/HCPCS: 59025; 59050; 99221; G0378

== ENCOUNTER 2024-01-09 07:00 | Outpatient (CLI) | payer MEDICAID, SELFPAY ==
[2024-01-09 07:24] VITALS: BMI 34.8
[2024-01-09 07:32] VITALS: BP 119/55; PULSE 92
[2024-01-09 07:34] VITALS: RESP 16; TEMP 36.9
[2024-01-09 08:01] LABS: Color, Urine Yellow (Yellow); Glucose, Dipstick Normal (Normal); Ketone-Dipstick Negative (Negative); Leukocyte Esterase-Dipstick 25 /ul (Negative); Nitrite-Dipstick Negative (Negative); Occult Blood-Urine Negative /ul (Negative); Protein-Dipstick Negative (Negative); Urine Bilirubin Dipstick Negative (Negative); Urine Clarity Cloudy (Clear); Urine Urobilinogen Normal (Normal)
--- NOTE | 2024-01-09 08:20 | OB.TRI.NOTE ---
HPI - General HPI Narrative MARIE ROMANO, is a 23 F who presents at 30w5d for pelvic cramping, nausea, and diarrhea. Good movement, no vaginal bleeding or fluid leakage. Maternal Data Information Gestational age: 30w2d PFSH PFS Medical History no medical history Home Medications vit no.95-ferrous fumarate 28 mg-folic acid 800 mcg tablet () 1 tab PO DAILY 07/22/23 [History Last Taken 01/08/24 07:00 1 TAB] acetaminophen 325 mg capsule 325 mg PO Q6H PRN pain 12/19/23 [History Last Taken 01/09/24 02:00 500 mg] Allergy/AdvReac Type Severity Reaction Status Date / Time No Known Allergies Allergy Verified 01/09/24 07:36 Social History Smoking Status: Current every day smoker tobacco type: e-cigarettes History Elective abortions Hx Para 0 Spontaneous abortions Hx # Term Pregnancies Ectopic pregnancies Hx # Pregnancies Multiple births # of living children Physical Exam Const alert and oriented x3 General Appearance: cooperative Orientation / Consciousness: awake, oriented to person, oriented to place and oriented to time Exam Limitations: no limitations HEENT normocephalic Head and Scalp: normal to inspection, normocephalic and atraumatic Face and Sinus: normal facial exam Eyes General Eye: normal appearance of both eyes Neck full ROM Chest Chest: symmetrical chest wall rise Resp normal respiratory effort and normal air movement GI normal to inspection, nondistended, normoactive bowel sounds and non-tender appearance of the vagina normal Bladder / Kidney Exam: no CVA tenderness Extremity normal to inspection and full ROM Neuro oriented x3 and moves all extremities Sensorium / Orientation: awake, alert and oriented to person Motor Exam: clonus absent Deep Tendon Reflexes: Rt Patellar (L4): 2+ and Lt Patellar (L4): 2+ NST FHR Rate Baby A Baseline: 140 Variability:: Moderate Accelerations:: 15 x 15 Decelerations:: None NST Reactive:: Yes Uterine Activity:: None Assessment & Plan (1) 30 weeks gestation of : (2) Cramping affecting , antepartum: (3) Diarrhea: (4) Nausea & vomiting: PLAN: Plan 1) 1 liter LR 2) CMP, CBC, urine culture 3) Zofran 4mg IVP 4) Immodium if continued diarrhea 5) PO rest, braty diet 6) D/C home
[2024-01-09] MEDS: Lactated Ringers 1,000 ML 999 ML IV (08:46)
[2024-01-09] MEDS: Ondansetron 4 MG/2 ML Vial IV (08:48)
[2024-01-09 09:02] LABS: Absolute Neutrophil Count 14.5 X10^3/uL (2.0-7.7); Basophil# 0.07 X10^3/uL; Basophil% 0.4 % (0-1); Eosinophil# 0.05 X10^3/uL; Eosinophils% 0.3 % (0-5); Lymphocyte % 8.3 % (19-41); Mean Corp Hgb Conc 33.3 g/dL (32-36); Mean Corpuscular Hgb 28.9 pg (27.0-32.0); Mean Corpuscular Volume 86.6 fL (81-99); Mean Platelet Vol. 9.4 fl (6.2-12.0); Monocyte# 0.61 X10^3/uL; Monocyte% 3.6 % (0-10); NRBC Flagged by Analyzer 0 % (0-5); Neutrophil # 14.47 X10^3/uL (2.7-7.7); Neutrophil % 86.1 % (47-70); Platelet Count 245 K/mm3 (150-450); RBC Distribution Width CV 12.2 % (11.6-14.6); RBC Distribution Width SD 38.5 fl (35.1-43.9); Red Blood Count 3.81 M/mm3 (4.2-5.4); White Blood Count 16.8 K/mm3 (4.4-11.0)
[2024-01-09] MEDS: Loperamide 2 MG Capsule PO (09:21)
[2024-01-09 09:46] LABS: ALB/GLOB Ratio 0.8 RATIO (0.9-2.4); AST(SGOT) 17 U/L (15-37); Alanine Aminotransfer ALT/SGPT 23 U/L (13-56); Albumin, Serum 2.7 g/dL (3.2-5.0); Alkaline Phosphatase 102 U/L (45-117); Anion Gap 6 (5-15); BUN 6 mg/dL (7-18); BUN/Creat Ratio 12.7 RATIO (10-20); Calcium,Total 8.7 mg/dL (8.5-10.1); Chloride 106 mmol/L (98-107); Creatinine, Serum 0.47 mg/dL (0.55-1.02); EST Glomerular Filtration Rate 173 mL/min (>60); Est Glom Filt Rate - Afr Amer 210 mL/min (>60); Estimated Creatinine Clearance 204.72 ml/min; Globulin 3.5 g/dL (2.2-4.2); Glucose 94 mg/dL (74-106); Potassium 3.8 mmol/L (3.5-5.1); Protein, Total 6.2 g/dL (6.4-8.2); Sodium Level 135 mmol/L (136-145)
[2024-01-09 09:52] VITALS: BP 116/57; PULSE 68; TEMP 37.1
== END 2024-01-09 10:10 | disposition home or self-care (01) ==
LOC: WPOUT 07:07 → WP 07:24
PROVIDERS: PCP Nurse Practitioner Adult Health; Referring Provider Advanced Practice Midwife; Visit Provider Advanced Practice Midwife
DX: O21.2 Late vomiting of pregnancy (principal); O99.891 Other specified diseases and conditions complicating pregnancy; O99.333 Smoking (tobacco) complicating pregnancy, third trimester; R19.7 Diarrhea, unspecified; F17.290 Nicotine dependence, other tobacco product, uncomplicated; Z3A.30 30 weeks gestation of pregnancy
CPT/HCPCS: 96365; 96375; 36415; 59025; 59050; 80053; 81002; 85025; 99221; J7120; G0378; J2405

== ENCOUNTER 2024-02-16 15:45 | Outpatient (CLI) | payer MEDICAID, SELFPAY ==
[2024-02-16 15:58] VITALS: BP 127/68; PULSE 98
[2024-02-16 15:59] VITALS: PULSE 146; O2SAT 98
[2024-02-16 16:00] VITALS: PULSE 98
[2024-02-16 16:07] VITALS: RESP 18; TEMP 36.8; O2SAT 98
[2024-02-16 16:14] VITALS: BMI 35.9
--- NOTE | 2024-02-16 21:04 | OB.TRI.NOTE ---
HPI - General HPI Narrative MARIE ROMANO, is a 23 F at 36.1 who presents with upper abdominal pain that comes and goes. Positive movement, denies any loss of fluid or vaginal bleeding. PFSH PFSH Medical History no medical history Home Medications ?Medication ?Instructions ?Recorded ?Last Taken ?Type vit no.95-ferrous 1 tab PO DAILY 07/22/23 02/16/24 09:00 History fumarate 28 mg-folic acid 800 mcg tablet () acetaminophen 325 mg capsule 325 mg PO Q6H PRN pain 12/19/23 01/09/24 02:00 History 500 mg Allergy/AdvReac Type Severity Reaction Status Date / Time No Known Allergies Allergy Verified 02/16/24 16:17 Social History Smoking Status: Current every day smoker tobacco type: e-cigarettes History Elective abortions Hx Para 0 Spontaneous abortions Hx # Term Pregnancies Ectopic pregnancies Hx # Pregnancies Multiple births # of living children ROS Eyes Eyes: Denies blurry vision Cardiovascular Cardiovascular: Reports none; Denies chest pain at rest, chest pain with activity or dizziness Respiratory/Chest Respiratory/Chest: Denies cough or dyspnea Gastrointestinal Gastrointestinal: Reports none and other; Denies diarrhea or vomiting Genitourinary Genitourinary: Denies dysuria Musculoskeletal Musculoskeletal: Reports none Integumentary Integumentary: Reports none; Denies rash Neurologic Neurologic: Denies dizziness, headache(s) or other visual disturbances Psychiatric Psychiatric: Reports none NST FHR Rate Baby A Baseline: 135-145 Variability:: Moderate Accelerations:: 15 x 15 Decelerations:: None NST Reactive:: Yes FHR Category:: Category I Uterine Activity:: None Assessment & Plan (1) 36 weeks gestation of : (2) Abdominal pain: (3) No significant past medical history: PLAN: Plan NST reactive No contractions seen via TOCO or palpated Pain more than likely round ligament pain with movement D/C home with follow up in office next week PTL precautions reviewed
== END 2024-02-16 17:13 | disposition home or self-care (01) ==
LOC: WPOUT 15:48 → WP 15:48
PROVIDERS: PCP Nurse Practitioner Adult Health; Referring Provider Advanced Practice Midwife; Visit Provider Advanced Practice Midwife
DX: O99.891 Other specified diseases and conditions complicating pregnancy (principal); O99.333 Smoking (tobacco) complicating pregnancy, third trimester; R10.10 Upper abdominal pain, unspecified; F17.290 Nicotine dependence, other tobacco product, uncomplicated; Z3A.36 36 weeks gestation of pregnancy
CPT/HCPCS: 59025; 59050; 99221; G0378

== ENCOUNTER 2024-02-29 15:44 | Outpatient (CLI) | payer MEDICAID, SELFPAY ==
[2024-02-29 15:56] VITALS: BMI 37.7
[2024-02-29 16:14] VITALS: BP 131/76; PULSE 102
[2024-02-29 16:45] LABS: ROM Internal Control Test YES-OK TO RESULT pt. (Internal QC); ROM Patient Test Negative (Negative); Record Kit Lot#, ROM+ K1866
--- NOTE | 2024-02-29 19:08 | OB.TRI.NOTE ---
HPI - General HPI Narrative MARIE ROMANO, is a 23 F who presents with leaking fluid since CE in office. Patient seen today in office and CE with membrane sweep completed. Patient reports she continues to leak clear fluid. Feeling occasional contractions. Maternal Data Information SARAI Calculator Estimated Delivery Date Method Current WG Current Estimate 03/14/24 Manual 38w 0d PFSH PFSH Medical History no medical history Home Medications ?Medication ?Instructions ?Recorded ?Last Taken ?Type vit no.95-ferrous 1 tab PO DAILY 07/22/23 02/29/24 History fumarate 28 mg-folic acid 800 mcg tablet () Allergy/AdvReac Type Severity Reaction Status Date / Time No Known Allergies Allergy Verified 02/29/24 17:14 Social History Smoking Status: Current every day smoker tobacco type: e-cigarettes History Elective abortions Hx Para 0 Spontaneous abortions Hx # Term Pregnancies Ectopic pregnancies Hx # Pregnancies Multiple births # of living children ROS Eyes Eyes: Denies blurry vision Cardiovascular Cardiovascular: Reports none; Denies chest pain at rest, chest pain with activity or dizziness Respiratory/Chest Respiratory/Chest: Denies cough or dyspnea Gastrointestinal Gastrointestinal: Reports none and other; Denies diarrhea or vomiting Genitourinary Genitourinary: Denies dysuria Musculoskeletal Musculoskeletal: Reports none Integumentary Integumentary: Reports none; Denies rash Neurologic Neurologic: Denies dizziness, headache(s) or other visual disturbances Psychiatric Psychiatric: Reports none Physical Exam Const alert and no apparent distress General Appearance: cooperative Orientation / Consciousness: awake Exam Limitations: no limitations HEENT normocephalic Eyes General Eye: normal appearance of both eyes Neck full ROM Chest inspection of chest normal Resp normal respiratory effort and normal air movement Effort and Inspection: symmetric chest movement Auscultation: clear to auscultation bilaterally Cardio regular rate GI soft to palpation, non-tender and non-distended Inspection: and other Back/Spine normal ROM Extremity full ROM, normal capillary refill and no calf tenderness Skin no rashes or lesions noted Neuro oriented x3 and CN's II-XII intact bilaterally Psych mental status grossly normal NST FHR Rate Baby A Baseline: 140 Variability:: Moderate Accelerations:: 15 x 15 Decelerations:: None NST Reactive:: Yes FHR Category:: Category I Uterine Activity:: irregular Assessment & Plan (1) 38 weeks gestation of : (2) No leakage of amniotic fluid into vagina: PLAN: Plan ROM plus - NEGATIVE NST reactive, Cat. 1 tracing CE - unchanged from office D/C home with follow up
== END 2024-02-29 17:30 | disposition home or self-care (01) ==
LOC: WPOUT 15:48 → WP 15:49
PROVIDERS: PCP Nurse Practitioner Adult Health; Referring Provider Advanced Practice Midwife; Visit Provider Advanced Practice Midwife
DX: O99.891 Other specified diseases and conditions complicating pregnancy (principal); Z3A.38 38 weeks gestation of pregnancy
CPT/HCPCS: 59050; 84112; 99212; 99221; G0378; G0463

== ENCOUNTER 2024-03-07 08:18 | Inpatient (IN) | payer MEDICAID, SELFPAY ==
[2024-03-07] VITALS (30 sets, daily range): BP systolic 101–193; BP diastolic 55–104; PULSE 70–122; RESP 16; TEMP 36.5–37.2; O2SAT 90–100; BMI 38.0
[2024-03-07] MEDS: Lactated Ringers 1,000 ML 150 ML IV ×2 (08:10→14:32)
--- NOTE | 2024-03-07 08:39 | PCM.HP.OB ---
HPI - General General Date of Admission: 03/07/24 Date of Service: 03/14/24 Chief Complaint: induction HPI Narrative MARIE ROMANO, is a 23 F who presents elective IOL 4 cm Maternal Data Information SARAI Calculator Estimated Delivery Date Method Current WG Current Estimate 03/14/24 Manual 39w 0d Final SARAI: 03/14/24 Gestational age: 39 PFSH PFSH Medical History no medical history Home Medications ?Medication ?Instructions ?Recorded ?Last Taken ?Type vit no.95-ferrous 1 tab PO DAILY 07/22/23 02/29/24 History fumarate 28 mg-folic acid 800 mcg tablet () Allergy/AdvReac Type Severity Reaction Status Date / Time No Known Allergies Allergy Verified 02/29/24 17:14 Family History no significant family his Surgical History no surgical history Social History Smoking Status: Never smoker History Elective abortions Hx Para 1 Spontaneous abortions Hx # Term Pregnancies Ectopic pregnancies Hx # Pregnancies Multiple births # of living children NST FHR Rate Baby A FHR Category:: Category I ROS Constitutional Constitutional: Denies fatigue, fever(s) or malaise Eyes Eyes: Denies change in vision ENT HEENT: Denies dizziness or headache(s) Cardiovascular Cardiovascular: Denies chest pain, dyspnea or lightheadedness Respiratory/Chest Respiratory/Chest: Denies cough or dyspnea Gastrointestinal Gastrointestinal: Denies change in bowel habits Genitourinary Genitourinary: Denies burning urination or genital lesions Integumentary Integumentary: Denies rash Neurologic Neurologic: Denies confusion, dizziness, headache(s), numbness or weakness Vital Signs Vital Signs Vital Signs: 03/07/24 07:31 03/07/24 07:31 03/07/24 07:32 Pulse Rate 100 94 Blood Pressure 126/73 H BP Systolic 126 BP Diastolic 73 Pulse Ox 03/07/24 07:32 03/07/24 08:34 03/07/24 08:34 Pulse Rate 94 Blood Pressure 104/62 BP Systolic 104 BP Diastolic 62 Pulse Ox 97 Weight Weight: 100.357 kg Body Mass Index (BMI) 38.0 Physical Exam Const alert and no apparent distress General Appearance: cooperative HEENT normocephalic Resp normal respiratory effort GI soft to palpation GI Narrative: gravid, nontender, appropriate for gestational age Extremity no calf tenderness General Extremity: edema Skin no wounds Rashes: No rashes noted Psych activity/motor behavior normal Labs Labs Labs: Blood Type A POSITIVE Antibody Screen NEGATIVE Hct 32.2 % (37-47) L Hgb 10.3 g/dL (12.0-15.0) L Obstetrics Ultrasound Syphilis Total Ab Non-reactive Rhogam given: No Assessment & Plan (1) 39 weeks gestation of : (2) Elective induction of labor planned:
[2024-03-07 08:45] LABS: Absolute Lymphocyte Count 2.47 X10^3/uL (0.83-4.51); Absolute Neutrophil Count 7.6 X10^3/uL (2.0-7.7); Basophil# 0.03 X10^3/uL; Basophil% 0.3 % (0-1); Eosinophil# 0.08 X10^3/uL; Eosinophils% 0.7 % (0-5); Hematocrit 32.2 % (37-47); Hemoglobin 10.3 g/dL (12.0-15.0); Lymphocyte # 2.47 X10^3/ul (0.83-4.51); Lymphocyte % 22.9 % (19-41); Mean Corpuscular Hgb 25.8 pg (27.0-32.0); Mean Corpuscular Volume 80.7 fL (81-99); Mean Platelet Vol. 9.9 fl (6.2-12.0); Monocyte# 0.52 X10^3/uL; Monocyte% 4.8 % (0-10); NRBC Flagged by Analyzer 0 % (0-5); Neutrophil # 7.59 X10^3/uL (2.7-7.7); Neutrophil % 70.3 % (47-70); Platelet Count 285 K/mm3 (150-450); RBC Distribution Width CV 13.8 % (11.6-14.6); RBC Distribution Width SD 40.6 fl (35.1-43.9); Red Blood Count 3.99 M/mm3 (4.2-5.4); White Blood Count 10.8 K/mm3 (4.4-11.0)
[2024-03-07] MEDS: Oxytocin 15 Units/NS 250ml 15 UNITS/250 ML IV.SOLN 2 UNITS IV (08:45)
[2024-03-07] MEDS: Mag Hydrox/Al Hydrox/Simeth 30 ML UDC PO (09:21)
[2024-03-07 09:25] LABS: Syphilis Antibodies Non-reactive
[2024-03-07] MEDS: LACTATED RINGERS 500 ML 999 ML IV (13:14)
[2024-03-07] MEDS: fentaNYL-bupivacaine (epidural) 100 ML BAG EPIDURAL (13:50)
[2024-03-07] MEDS: Oxytocin 15 Units/NS 250ml 15 UNITS/250 ML IV.SOLN 334 UNITS IV (18:20)
--- NOTE | 2024-03-07 18:26 | EX.PCM.OBRPT ---
Assessment & Plan (1) (spontaneous vaginal delivery): (2) 39 weeks gestation of : Maternal Data Information SARAI Calculator Estimated Delivery Date Method Current WG Current Estimate 03/14/24 Manual 39w 0d Final SARAI: 03/14/24 Gestational age: 39 Vaginal Delivery Maternal Presentation Maternal Presentation: Elective Induction Type of Induction: Pitocin Operative Information Date of Procedure: 03/07/24 Pre-Operative Diagnosis: IUP at 39 weeks Post-Operative Diagnosis: same Surgery / Procedure Performed: Spontaneous Vaginal Delivery Type of Anesthesia: Epidural Estimated Blood Loss: 100 cc Time of Delivery: 18:16 Findings Description of Procedure: Pitocin induction of labor. SROM at 5 cm. Progressed to complete and began pushing. Delivered JORGE over an intact peritoneum. The anterior and posterior shoulder delivered with gentle traction. He cried upon delivery. The cord was clamped and cut. The placenta delivered with sonya traction. There were no lacerations. Presentation: Vertex and JORGE Amniotic Membrane Rupture Type: Spontaneous Amniotic Fluid Description: Clear Placental Delivery Description: Spontaneous Placenta Disposition: [facility] Cord Vessel Description: 3 Vessels Cord Entanglement: None A Gender: Male (1 minute): 8 (5 minute): 9 Delayed Cord Clamping: Yes Post Vaginal Delivery Medications Given After Delivery: IV Pitocin Episiotomy Description: None Laceration: None Complication Complications: None
[2024-03-07] MEDS: Oxytocin 15 Units/NS 250ml 15 UNITS/250 ML IV.SOLN 83 UNITS IV (19:15)
[2024-03-07] MEDS: 0.9% Saline Lock 10 ML Syringe IV (21:11)
[2024-03-07] MEDS: Ondansetron 4 MG/2 ML Vial IV (21:11)
[2024-03-07] MEDS: Ibuprofen 600 MG Tablet PO (21:17)
--- NOTE | 2024-03-07 21:42 | NURSING ---
At 2100, this RN removed epidural catheter and blue tip was intact.
[2024-03-08 03:20] VITALS: BP 103/47; PULSE 68; RESP 16; TEMP 36.6
--- NOTE | 2024-03-08 06:45 | PCM.PN.OB ---
Subjective Subjective Doing well. No complaints. Breast feeding well. Minimal pain. Bleeding normal. Desires discharge tonight. Objective Data Objective Data Vital Signs: Vital Signs Temp Pulse Resp BP Pulse Ox O2 Del Method 97.9 F 68 16 103/47 L 100 Room Air 03/08/24 03:20 03/08/24 03:20 03/08/24 03:20 03/08/24 03:20 03/07/24 13:50 03/08/24 03:20 Oxygen Delivery Method Room Air Weight: 100.357 kg Body Mass Index (BMI) 38.0 Intake & Output: Intake and Output for Last 24 Hours 03/06/24 03/07/24 03/08/24 23:59 23:59 23:59 Intake Total 2292.24 / 2292.24 Output Total 850 / 850 Balance 1442.24 / 1442.24 Lab / Micro Data 03/07/24 08:10 Labs: Laboratory Results - last 24 hr 03/07/24 08:10: WBC 10.8, RBC 3.99 L, Hgb 10.3 L, Hct 32.2 L, MCV 80.7 L, MCH 25.8 L, MCHC 32.0, RDW Std Deviation 40.6, RDW Coeff of Jessika 13.8, Plt Count 285, MPV 9.9, Immature Gran % (Auto) 1.000 H, Neut % (Auto) 70.3 H, Lymph % (Auto) 22.9, Noble % (Auto) 4.8, Eos % (Auto) 0.7, Baso % (Auto) 0.3, Absolute Neuts (auto) 7.6, Absolute Lymphs (auto) 2.47, Nucleated RBC % 0, Syphilis Total Ab Non-reactive, Blood Type Cancelled, Antibody Screen Cancelled 03/07/24 09:10: Blood Type A POSITIVE, Antibody Screen NEGATIVE Physical Exam Const alert and no apparent distress Narrative: Fundus firm, below umbilicus. Assessment & Plan (1) (spontaneous vaginal delivery): PLAN: Plan Discharge tonight
--- NOTE | 2024-03-08 06:47 | DS.PCM_ITS ---
Providers Date of Admission: 03/07/24 Date of Discharge: 03/08/24 Primary Care Physician: Niki Whitman, ALEKSANDRAC Reason For Visit: VAG DELIVERY Diagnosis Discharge Diagnosis (1) (spontaneous vaginal delivery): Status: Acute Code(s): O80 - Encounter for full-term uncomplicated delivery Plan Discharge tonight Medications at Discharge Home Medications vit no.95-ferrous fumarate 28 mg-folic acid 800 mcg tablet () 1 tab PO DAILY 07/22/23 acetaminophen 500 mg tablet 1,000 mg (2 x 500 mg) PO Q6H PRN PRN Pain 1-10 Or Fever #30 tabs 03/08/24 ibuprofen 600 mg tablet 600 mg PO Q6H PRN PRN Pain Score 1-10 #30 tabs 03/08/24 Hospital Course Operations None Procedures None Summary of Care Provided Minutes Spent on Discharge: 20 Hospital Course: Elective IOL. Pitocin only. SROM at 5 cm. without complication. No issues. Breast feeding Physical Exam Const alert and no apparent distress Narrative: Fundus firm, below umbilicus. Weight / BMI Weight Weight: 100.357 kg Body Mass Index (BMI) 38.0 ABG / Lab / Microbiology Data 03/07/24 08:10 Laboratory: Laboratory Results - last 24 hr 03/07/24 08:10: WBC 10.8, RBC 3.99 L, Hgb 10.3 L, Hct 32.2 L, MCV 80.7 L, MCH 25.8 L, MCHC 32.0, RDW Std Deviation 40.6, RDW Coeff of Jessika 13.8, Plt Count 285, MPV 9.9, Immature Gran % (Auto) 1.000 H, Neut % (Auto) 70.3 H, Lymph % (Auto) 22.9, Schleicher % (Auto) 4.8, Eos % (Auto) 0.7, Baso % (Auto) 0.3, Absolute Neuts (auto) 7.6, Absolute Lymphs (auto) 2.47, Nucleated RBC % 0, Syphilis Total Ab Non-reactive, Blood Type Cancelled, Antibody Screen Cancelled 03/07/24 09:10: Blood Type A POSITIVE, Antibody Screen NEGATIVE D/C Instructions May resume sexual activity in: 6 weeks Please Follow Up With: Maggie Barbour MD When: Follow up with our office in 1-2 and 6 weeks or as needed. [phone] Meaningful Use Info Meaningful Use Meaningful Use Diagnoses (Choose all that apply): None applicable Ischemic Stroke Statin Dosing Therapy Reference: STATIN DOSE THERAPY REFERENCE: * Patients > 75 years receive moderate or high dose statin therapy. * Patients 75 years or YOUNGER should receive HIGH intensity statin dose unless contraindicated. You will be required to document reason for non-treatment if statin daily dose does not meet guidelines. HIGH DOSE STATIN THERAPY DAILY Atorvastatin > than or = to 40 mg Rosuvastatin > than or = to 20 mg Amlodipine + Atorvastatin > than or = to 2.5/40 mg Ezetimibe + Simvastatin 10/80 mg Simvastatin 80mg Discharge Plan Admission Admit Date/Time: 03/07/24 08:18 Primary Reason for Your Visit: labor and delivery Attending Provider: Renu Scott Primary Care Provider: Niki Whitman NP Discharge Orders/Prescriptions Prescriptions: New ibuprofen 600 mg Tablet 600 mg PO Q6H PRN PRN (Reason: Pain Score 1-10) Qty: 30 0RF acetaminophen 500 mg Tablet 1,000 mg PO Q6H PRN PRN (Reason: Pain 1-10 Or Fever) Qty: 30 0RF Continued PNV cmb#95-ferrous fumarate-FA [] 28 mg iron- 800 mcg tablet 1 tab PO DAILY Referrals / Follow Up: Niki Whitman NP, ACCOUNT MANAGER EDUCATION-C [Primary Care Provider] - Disposition Disposition (needs filled in before D/C Order can be placed): Home, Self Care
[2024-03-08 08:15] VITALS: BP 122/73; PULSE 81; RESP 16; TEMP 36.8; O2SAT 97
[2024-03-08] MEDS: Acetaminophen 500 MG Tablet 1000 MG PO ×2 (08:16→16:14)
[2024-03-08] MEDS: Ibuprofen 600 MG Tablet PO (10:59)
[2024-03-08 11:10] VITALS: BP 97/58; PULSE 78; RESP 16; TEMP 36.5; O2SAT 98
[2024-03-08 16:15] VITALS: BP 115/89; PULSE 80; RESP 16; TEMP 36.6; O2SAT 96
--- NOTE | 2024-03-12 15:44 | CASEMGMT ---
Social Work Assessment Labor and Delivery Unit Patient Address: [address] [place] [id number] Phone number: [phone] Date of Referral: 03/07/24 Time of Referral:?59 Referred By: Dr. Scott Date of Intervention: ??03/08/24 Time of Intervention:? 1000 Reason for Referral:? other Sw completed chart review and acknowledges social work consult. Sw presented to bedside and introduced self to mother of baby (MOB- Danni) and father of baby (FOB- Carlin). Sw explained reason for sw involvement and completed psychosocial assessment. History obtained from: medical records, MOB and FOB Household composition: Currently residing in the family home is MOB, FOTimmy, MOB's daughter (Nohemy- 5) and dad's son (Ramone-4). This is their first child together. HELEN states that current housing is safe and secure, no concerns. Patient's parent/guardian status:? Parnets state that they have been together for almost three years after being introduced to each other through mutual friends. No concerns noted at this time regarding domestic violence or intimate partner violence. Parents were observed to have good banter with each other and support from one another. ? Medical History: ?HELEN is 23 year old female who is 2, para 1- now 2 following labor and delivery of . HELEN received routine care with [facility]. HELEN presented to hospital for an induction of labor and delivered baby on 03/07/24 via vaginal delivery at 39 weeks gestation. Baby boy, named Moose Miller, was born weighing 9lb 15oz LGA, with apgars of 8 and 9 at one and five minutes of life, respectfully. HELEN reports that baby will be followed by Dr. Blackwell for pediatrics. HELEN is breast feeding and states that it is going well. Educational Status:? Both parents completed high school. 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 No issues with reading, learning or comprehension. Financial Status: Both parents are gainfully employed outside of the home. 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 Infant Supplies:?? Parents have obtained all necessary baby items, including: car seat, safe sleep space, clothes, diapers and wipes. Childcare/Caregiver(s):? MOB will be the primary caregiver to baby. When both parents have returned to work maternal grandma will provide childcare. Transportation:?? both parents have their drivers license and reliable means of transportation. NO barriers. Programs/Agencies Involved: ???HELEN is receiving insurance through [employer] and has WIC. HELEN states that she has already informed [facility] that baby has been born and has an appointment scheduled. Children Services/Legal Issues:???No history of involvement, no issues or concerns warranting referral to be made at this time. Behavioral Health Issues: ??Mental Health History:?MARSHA denies mental health diagnoses. HELEN states that she has not been diagnosed with any thing and did not experience any symptoms after her first baby was born. ?? Substance Use History: Parents deny substance use prior to and during . ?? Family History:?HELEN states that her father is an alcoholic and she and him are not close to each other. ? Drug Screens: No drug screens observed in chart review. ?? Family/Social Stressors:? Parents deny any issues or concerns at this time. Support Systems: MOB states that FOB parents and their siblings are all supportive, along with maternal grandma. Depression/Shaken Baby/Safe Sleeping:? Sw reviewed mood and anxiety disorders with parents, explained risk factors and reinforced importance of seeking help if either of them struggle with their mental health during this time. Parents express understanding. Sw discussed importance of seeking comfort by utilizing healthy coping skills instead of using drugs or alcohol. Parents express understanding. Sw educated parents on shaken baby prevention and ABCs of safe sleep. Parents express understanding. ASSESSMENT:? MOB and baby admitted following labor and delivery of . Parents both at bedside and active in baby care. MOB breastfed baby and did skin to skin during completion of assessment. FOB was observed to be good support to MOB. Parents talked openly and participated in assessment. Parents have obtained everything that they need for baby, have secure housing, employment and natural supports in place. PLAN:? MOB and baby to be discharged when medically ready. ?No other services requested or indicated. Rubén Wasserman, RADIO DIVISION CAPTAIN, ELEMENTARY INSTRUCTIONAL COACH
--- NOTE | 2024-03-13 10:13 | NURSING ---
Follow up phone call made, no answer, voicemail left
== END 2024-03-08 19:07 | disposition home or self-care (01) | DRG 560 ==
PROVIDERS: Admitting Provider Advanced Practice Midwife; PCP Nurse Practitioner Adult Health; Referring Provider Advanced Practice Midwife; Visit Provider Obstetrics & Gynecology
DX: O80 Encounter for full-term uncomplicated delivery (principal); Z37.0 Single live birth; Z3A.39 39 weeks gestation of pregnancy
CPT/HCPCS: 59025; 59050; 85025; 86780; 86850; 86900; 86901; 99221; J7120; A4216; G0378; J2405

== ENCOUNTER 2024-03-16 00:18 | Inpatient (IN) | payer MEDICAID, SELFPAY ==
[2024-03-16] VITALS (42 sets, daily range): BP systolic 70–115; BP diastolic 43–93; PULSE 64–124; RESP 14–25; TEMP 36.3–37.9; O2SAT 93–100; BMI 36.8; BMI 35.2
--- NOTE | 2024-03-16 00:29 | US_ITS ---
EXAM: US PELVIS TRANSVAGINAL CLINICAL INDICATION: VAGINAL DISCHARGE, LIGHT BLEEDING -- 8 WEEKS POST TECHNIQUE: Transvaginal pelvic ultrasound was performed with grayscale and color Doppler imaging. Transvaginal imaging was used for better evaluation of the endometrium and adnexa. COMPARISON: Ultrasound 07/22/2023 FINDINGS: UTERUS/CERVIX: Permanent uterus measuring 16.6 x 12.2 x 7.6 cm. Thickened endometrial cavity with heterogeneous echogenicity measuring up to 3.5 cm in thickness. Anteverted. There is no uterine mass. RIGHT OVARY: Right ovary not visualized due to bowel gas and uterus. LEFT OVARY: Left ovary not visualized due to bowel gas and uterus. FREE FLUID: None. BLADDER: Empty bladder which cannot be evaluated with this probe. US/Transvaginal Non- IMPRESSION: Thickened endometrial cavity with heterogeneous echogenicity measuring up to 3.5 cm in thickness. Retained products of conception not excluded. Electronically Signed: Reza Hill MD at 2:09 EDT ,
[2024-03-16] MEDS: Acetaminophen 500 MG Tablet 1000 MG PO ×2 (02:03→09:45)
--- NOTE | 2024-03-16 02:49 | EDS_ITS ---
HPI History of Present Illness Chief Complaint: Fever Informant: patient and friend Narrative Narrative: Patient is a 23-year-old female who is roughly 8 days . She states she gave vaginally at full-term. She states she stayed a few days in the hospital and went home and has been doing well. However in the last 24 hours she developed generalized abdominal discomfort with a fever. She went to an outside hospital where she had blood work obtained which showed normal white count but there was left shift as well as a CT scan of her head as well as abdomen. Imaging studies revealed no obvious findings but she had a documented fever and there is concern for endometritis/retained products of conception and she was started on gentamicin and clindamycin and then transferred to this facility as she receives her [facility] OF OCCUPATIONAL HEALTH care here [facility] Medical History (Updated 03/16/24 @ 05:[address] Marichuy Mejia, DO) Gave to child recently Medical History no medical history Home Medications ?Medication ?Instructions ?Recorded ?Last Taken ?Type acetaminophen 500 mg tablet 1,000 mg (2 x 500 mg) PO Q6H PRN 03/08/24 Unknown Rx PRN Pain 1-10 Or Fever #30 tabs ibuprofen 600 mg tablet 600 mg PO Q6H PRN PRN Pain Score 03/08/24 Unknown Rx 1-10 #30 tabs Allergy/AdvReac Type Severity Reaction Status Date / Time No Known Allergies Allergy Verified 03/16/24 00:23 Social History Smoking Status: Never smoker [facility] ED Constitutional Constitutional ED: Reports chills and fever(s) ENT ENT ED: Denies sore throat Cardiovascular Cardiovascular: Denies chest pain Respiratory/Chest Respiratory/Chest: Denies cough or dyspnea Gastrointestinal Gastrointestinal: Reports abdominal pain and nausea; Denies diarrhea or vomiting Genitourinary Genitourinary ED: Denies dysuria Musculoskeletal Musculoskeletal: Reports myalgias Integumentary Denies rash Neurologic Neurologic: Reports headache(s) and weakness Hematologic/Lymphatic Hematologic/Lymphatic: Denies easy bleeding or easy bruising EXAM Physical Exam Const Vital Signs: 03/16/24 00:19 03/16/24 00:23 03/16/24 00:35 Temperature 99.0 F 99 F Temperature Source Oral Oral Pulse Rate 114 H 112 H Respiratory Rate 19 H 20 H Respiratory Effort Normal Non-Labored Respiratory Pattern Normal Blood Pressure 102/47 L 96/52 L Blood Pressure Mean 65 66 Pulse Ox 95 95 Oxygen Delivery Method Room Air Room Air 03/16/24 01:18 03/16/24 01:23 03/16/24 02:00 Temperature 100.3 F H 100.3 F H Temperature Source Oral Oral Pulse Rate 97 93 120 H Respiratory Rate 18 25 H 18 Respiratory Effort Respiratory Pattern Blood Pressure 111/44 L 111/90 H 113/60 Blood Pressure Mean 66 97 77 Pulse Ox 98 95 93 Oxygen Delivery Method Room Air Room Air 03/16/24 03:00 03/16/24 03:00 Temperature 98.6 F 98.6 F Temperature Source Oral Pulse Rate 91 96 Respiratory Rate 18 18 Respiratory Effort Respiratory Pattern Blood Pressure 110/52 L 110/52 L Blood Pressure Mean 71 71 Pulse Ox 95 95 Oxygen Delivery Method Room Air Positive well nourished and well developed General Appearance ED: well developed and pallor HEENT HEENT Narrative: Normocephalic atraumatic Eyes PERRL and EOMs intact bilaterally General Eye ED: Negative for scleral icterus Neck supple Neck Narrative: No nuchal rigidity or meningeal signs Chest Wall palpation of chest normal Resp normal respiratory effort and clear to auscultation bilaterally Resp Narrative: Breath sounds are diminished throughout but overall clear to auscultation without nasal flaring retractions or accessory muscle use Cardio regular rhythm Rate: tachycardic and other Other Details: Tachycardic rate with regular rhythm No murmurs rubs or gallops noted GI non-distended GI Narrative: Abdomen is soft and nondistended with normal active bowel sounds. Patient has generalized pain with palpation but no voluntary guarding or rigidity or pulsatile mass Auscultation: normoactive bowel sounds Palpation: soft Extremity normal to inspection Extremity Narrative: Negative Homans' sign bilaterally Neuro oriented x3 and CN's II-XII intact bilaterally Sensorium / Orientation: alert Psych Psych Narrative: Patient has a flat affect Skin no rashes or lesions noted General Skin Exam: pallor; Negative for jaundice MDM MDM MDM Narrative Medical decision making narrative: Patient arrived to the ER with low-grade fever but a nonsurgical abdomen. She had been worked up at the outside hospital with laboratory studies and CT scan of her head and abdomen and therefore I felt no need to repeat labs or these types of images. However as CT scan is not the best study for retained products of conception a transvaginal ultrasound was ordered. This showed a endometrial mass but could not completely confirm or exclude retained products of conception. The patient had been given gentamicin and clindamycin from the previous hospital. With need for potential D&C [facility] OF OCCUPATIONAL HEALTH was contacted and they do agree to accept the patient for admission at this time History & Record Review Discussion w/independent historian: Patient and Friend Radiography Diagnostic Testing: Clinical Impression(s) from Imaging Studies Transvaginal US 03/16/24 00:29 IMPRESSION: Thickened endometrial cavity with heterogeneous echogenicity measuring up to 3.5 cm in thickness. Retained products of conception not excluded. Electronically Signed: Reza Hill MD at 2:09 EDT , Discharge Plan Dx/Rx/DC Orders Clinical Impression: Retained products of conception, Abdominal pain, Pyrexia Disposition Disposition: Acute Care Hospital [facility] Discharge Date/Time: 03/16/24 03:53
[2024-03-16] MEDS: 0.9% Normal Saline (1000mL) 1,000 ML 999 ML IV (03:36)
--- NOTE | 2024-03-16 03:40 | ED.RN ---
THE PATIENT EXPRESSED CONCERNS REGARDING PUMPING. I SPOKE W/ [facility] CHARGE NURSE AND THEY WILL BE SENDING PUMPING SUPPLIES TO THE PATIENT ONCE THEY ARE TRANSFERRED TO THE FLOOR.
[2024-03-16] MEDS: Clindamycin 900 MG/50 ML BAG 75 MG IV ×3 (05:02→21:34)
[2024-03-16] MEDS: 0.9% Normal Saline (1000mL) 1,000 ML 125 ML IV ×3 (05:02→20:42)
--- NOTE | 2024-03-16 05:10 | PCM.HP.OB ---
HPI - General General Date of Admission: 03/16/24 Date of Service: 03/16/24 Chief Complaint: fevers and pain HPI Narrative MARIE ROMANO, is a 23 F who presents from an outside ER for suspected retained products of conception and infection. The patient had a spontaneous vaginal delivery about 9 days ago, which was uncomplicated. She reports 2 to 3 days ago she had worsened pelvic pain. 1 day ago she began having fevers and chills at home. She went into [facility] ER yesterday, and requested transport to [facility] overnight. Currently she reports a vaginal odor and pelvic pain. Her lochia has been normal. She is pumping. She denies any redness or pain with the breast. She denies any leg swelling or leg pain. She denies any urinary symptoms. She denies chest pain or trouble breathing. At the outside ER her WHB was 6 and Hgb 10.4. She had a CT scan that showed no acute process and recommended a pelvic ultrasound to further assess for retained POC's. The ER physician reported a vaginal discharge and cervical motion tenderness. Maternal Data Information SARAI Calculator Estimated Delivery Date Method Current WG Current Estimate 03/14/24 Manual 40w 2d PFSH PFSH Medical History (Updated 03/16/24 @ 05:[address] Marichuy Mejia, ) Gave to child recently Medical History no medical history Home Medications ?Medication ?Instructions ?Recorded ?Last Taken ?Type acetaminophen 500 mg tablet 1,000 mg (2 x 500 mg) PO Q6H PRN 03/08/24 Unknown Rx PRN Pain 1-10 Or Fever #30 tabs ibuprofen 600 mg tablet 600 mg PO Q6H PRN PRN Pain Score 03/08/24 Unknown Rx 1-10 #30 tabs Allergy/AdvReac Type Severity Reaction Status Date / Time No Known Allergies Allergy Verified 03/16/24 00:23 Social History Smoking Status: Never smoker History Elective abortions Hx Para 1 Spontaneous abortions Hx # Term Pregnancies Ectopic pregnancies Hx # Pregnancies Multiple births # of living children Vital Signs Vital Signs Vital Signs: 03/16/24 00:19 03/16/24 00:23 03/16/24 00:35 Temperature 99.0 F 99 F Temperature Source Oral Oral Pulse Rate 114 H 112 H Respiratory Rate 19 H 20 H Respiratory Effort Normal Non-Labored Respiratory Pattern Normal Blood Pressure 102/47 L 96/52 L Blood Pressure Mean 65 66 Blood Pressure Source Blood Pressure Position Blood Pressure Location Pulse Ox 95 95 Oxygen Delivery Method Room Air Room Air 03/16/24 01:18 03/16/24 01:23 03/16/24 02:00 Temperature 100.3 F H 100.3 F H Temperature Source Oral Oral Pulse Rate 97 93 120 H Respiratory Rate 18 25 H 18 Respiratory Effort Respiratory Pattern Blood Pressure 111/44 L 111/90 H 113/60 Blood Pressure Mean 66 97 77 Blood Pressure Source Blood Pressure Position Blood Pressure Location Pulse Ox 98 95 93 Oxygen Delivery Method Room Air Room Air 03/16/24 03:00 03/16/24 03:00 03/16/24 04:00 Temperature 98.6 F 98.6 F 98.9 F Temperature Source Oral Oral Pulse Rate 91 96 64 Respiratory Rate 18 18 16 Respiratory Effort Respiratory Pattern Blood Pressure 110/52 L 110/52 L 97/46 L Blood Pressure Mean 71 71 63 Blood Pressure Source Monitor Blood Pressure Position Semi-Fowlers Blood Pressure Location Right Arm Pulse Ox 95 95 97 Oxygen Delivery Method Room Air Room Air Weight Weight: 204 lb 12.951 oz Body Mass Index (BMI) 35.2 Physical Exam Const alert and no apparent distress General Appearance: comfortable HEENT normocephalic Resp normal respiratory effort GI non-distended GI Narrative: Moderate uterine tenderness and pelvic pain, fundus firm, no rebounding, no guarding, no rigidity Narrative: A foul smelling vaginal odor is noted Extremity normal to inspection and no calf tenderness Labs Labs Labs: Blood Type A POSITIVE Antibody Screen NEGATIVE Hct 32.2 % (37-47) L Hgb 10.3 g/dL (12.0-15.0) L Obstetrics Ultrasound Syphilis Total Ab Non-reactive Rhogam given: No Assessment & Plan (1) Retained products of conception: PLAN: Pelvic ultrasound cannot rule out retained POC's. No other source of infection at this time. Pelvic ultrasound images reviewed as well, with concern for retained POC's. Discussed limitation with imaging with patient. Given fevers, vaginal odor, and pelvic pain concern for endometritis with retained POC's. Discussed r/b/a suction D&C and questions answered. The desires to proceed and consent signed. (2) Abdominal pain: PLAN: - Most consistent with endometritis - IVF hydration and IV antibiotics (3) Pyrexia: PLAN: - Last fever 2 AM - IVF hydration and IV antibiotics (4) (spontaneous vaginal delivery): PLAN: - Routine care (5) Mother currently breast-feeding: PLAN: - Patient is pumping - Will notify - Clindamycin can cause GI side effects with and Gentamycin safety unknown. Discussed this with patient and for now she plans on pumping and dumping. Partner is at home with
[2024-03-16 05:27] LABS: Absolute Lymphocyte Count 0.39 X10^3/uL (0.83-4.51); Absolute Neutrophil Count 3.7 X10^3/uL (2.0-7.7); Basophil# 0.01 X10^3/uL; Basophil% 0.2 % (0-1); Hematocrit 28.7 % (37-47); Hemoglobin 8.7 g/dL (12.0-15.0); Lymphocyte # 0.39 X10^3/ul (0.83-4.51); Mean Corp Hgb Conc 30.3 g/dL (32-36); Mean Corpuscular Hgb 24.9 pg (27.0-32.0); Mean Corpuscular Volume 82.2 fL (81-99); Monocyte# 0.17 X10^3/uL; Monocyte% 3.9 % (0-10); NRBC Flagged by Analyzer 0 % (0-5); Neutrophil # 3.71 X10^3/uL (2.7-7.7); POSITIVE DIFFERENTIAL YES; Platelet Count 283 K/mm3 (150-450); RBC Distribution Width CV 14.5 % (11.6-14.6); Red Blood Count 3.49 M/mm3 (4.2-5.4); White Blood Count 4.3 K/mm3 (4.4-11.0)
[2024-03-16 05:45] LABS: Internal QC Validated? YES +Cl - CLEAR BKGD
[2024-03-16 05:47] LABS: Pregnancy, Urine Positive Negative
[2024-03-16 05:52] LABS: ALB/GLOB Ratio 0.7 RATIO (0.9-2.4); AST(SGOT) 19 U/L (15-37); Alanine Aminotransfer ALT/SGPT 24 U/L (13-56); Albumin, Serum 2.2 g/dL (3.2-5.0); Alkaline Phosphatase 101 U/L (45-117); Anion Gap 8 (5-15); BUN 8 mg/dL (7-18); BUN/Creat Ratio 17.4 RATIO (10-20); Calcium,Total 7.4 mg/dL (8.5-10.1); Chloride 116 mmol/L (98-107); Creatinine, Serum 0.46 mg/dL (0.55-1.02); EST Glomerular Filtration Rate 178 mL/min (>60); Est Glom Filt Rate - Afr Amer 215 mL/min (>60); Estimated Creatinine Clearance 210.13 ml/min; Globulin 3.1 g/dL (2.2-4.2); Glucose 103 mg/dL (74-106); Potassium 3.3 mmol/L (3.5-5.1); Protein, Total 5.3 g/dL (6.4-8.2); Sodium Level 144 mmol/L (136-145)
--- NOTE | 2024-03-16 06:15 | POC_PTH ---
PATIENT: MARIE ADAMS LOC: [facility]3 U#:[id number] AGE/SX: 23/F ROOM: [id number] RE03/16/[address]: Dr. Marichuy Mejia DO : 2000 BED: 1 DIS: 03/17/2024 SPEC #: [id number] RECD: 03/16/24 08:09 STATUS: REID REArben #: [id number] SAMI: 03/16/24 06:[address]: Marichuy Mejia DEPT: SURGICAL PATHOLOGY RECD BY: Leeanne Malik ENTERED: 03/16/24 10:55 SP TYPE: PROD CONC OTHR DR: PHYLLIS Dolan NP-C Tissues: A - Product of conception, NOS B - Product of conception, NOS C - Product of conception, NOS Procedures: Surgery Specimen Level IV HEADER OPERATION: D&C, suction PRE-OP DIAGNOSIS: Retained products of conception, retained placental parts TISSUE SUBMITTED: A- Retained products of conception #1, B- Retained products of conception #2, C- Retained products of conception #3 MICROSCOPIC DIAGNOSIS A. Retained products of conception #1, suction, dilation and curettage: Blood clots and scant fragments of inflamed myometrial tissue. See comment. B. Retained products of conception #2, suction, dilation and curettage: Blood clots and inflamed endometrial and myometrial tissue. Fragments of benign endocervical mucosa with chronic inflammation. See comment. C. Retained products of conception #3, suction, dilation and curettage: Blood clots and inflamed endometrial and myometrial tissue. See comment. / 03/19/2024 COMMENT A. Placental tissue is not identified in the sections examined. The specimen predominantly consists of blood clot. B&C. Placental tissue is not identified in the sections examined. Clinical correlation and appropriate follow up are necessary. MICROSCOPIC DESCRIPTION Slides are reviewed. GROSS DESCRIPTION A. Received in fixative is one container labeled with the patient's name and designated Retained products of conception #1. The specimen consists of multiple irregular and hemorrhagic fragments of red-ratliff soft tissue measuring in aggregate 12.0 x 12.0 x 2.0cm. parts are not grossly recognized. Finisher Cold Rolling portions are submitted in three cassettes. B. Received in fixative is one container labeled with the patient's name and designated Retained products of conception #2. The specimen consists of multiple irregular and hemorrhagic fragments of red-ratliff soft tissue measuring in aggregate 12.0 x 12.0 x 2.0cm. parts are not grossly recognized. Finisher Cold Rolling portions are submitted in three cassettes. C. Received in fixative is one container labeled with the patient's name and designated Retained products of conception #3. The specimen consists of multiple irregular fragments of toyw-yim-kpy soft tissue measuring in aggregate 4.0 x 4.0 x 0.6cm. parts are not grossly recognized. Specimen is totally submitted in three cassettes. AM/ 03/16/2024 TC:5 CPT:08320c4
[2024-03-16] MEDS: Lidocaine 1% /Epi 1:100 (20ml) 20 ML Vial (06:43)
--- NOTE | 2024-03-16 07:04 | PRE.ANES_ITS ---
ASA Classification* ASA Classification ASA Classification: 3 and E Assessment & Plan Anesthesia* Anesthesia Assessment Anesthesia Assessment: Discussed sedation and/or anesthesia options, risks, benefits, and alternatives with patient/parents/legal guardian/POA. Questions invited. The patient/parents/legal guardian/POA seems to understand and agrees to proceed with anesthesia plan. Reviewed the physical assessment, medical history, allergy history and patient home medications list prior to surgery/procedure/anesthetic and documented any changes. Performed airway and anesthesia risk assessments. 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 When Was Last Pacemaker Check QUESTION #4 FULL TEXT: You/Your Family Experience fever (hyperthermia) with Anesthesia Last Oral Intake Last Oral intake: Last Oral Intake NPO since 04:00 03/16/24 05:58 Meds taken in AM with sips of No 03/16/24 05:58 water? 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 Has anyone observed you stop No 03/16/24 03:58 breathing during sleep? STOP Results Negative 03/16/24 03:58 QUESTION #5 FULL TEXT : Do you snore loudly (louder than talking or can be heard through closed doors)? 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 Specify any problems Hx of Preganancy in last 3 No 03/16/24 03:58 Months Nurse Filling Out Transfusion DREDICK 03/16/24 03:58 & Questions: Date: 03/16/24 03/16/24 03:58 Time: 03:58 03/16/24 03:58 Patient unable to answer at this time (ie. confused, unrespo /Reproduction History /Reproductive History - secondary school special ed teacher: /Reproductive Hx- secondary school special ed teacher Hx Now No 03/16/24 04:00 Gestational Age (in weeks): EDC: Hx Hx Para Hx Section SAB Yes 03/16/24 04:00 Active Medications Active Medications: Current Medications Generic Name Dose Route Start Last Admin Trade Name Freq PRN Reason Stop Dose Admin Sodium Chloride 250 mls @ 15 mls/hr 03/16/24 03:53 IV .[id number] PRN Additional IVPB Infusion Sodium Chloride 250 mls @ 15 mls/hr 03/16/24 03:53 IV .[id number] PRN Saline Flush Sodium Chloride 1,000 mls @ 125 mls/hr 03/16/24 04:15 06/21/24 05:02 IV 125 mls/hr .Q8H LEN Administration Clindamycin Phosphate 900 mg in 50 mls @ 75 mls/hr 03/16/24 06:00 03/16/24 05:43 Cleocin IV Infused Q8 LEN Infusion Gentamicin Sulfate 270 mg/ 56.75 mls @ 100 mls/hr 03/16/24 10:00 Dextrose IVPB Q24 LEN Ondansetron HCl 4 mg 03/16/24 04:13 Ondansetron 4 Mg/2 Ml Vial IV Q8H PRN PRN NAUSEA Sodium Chloride 10 - 40 ml 03/16/24 03:53 0.9% Saline Lock 10 Ml Syringe IV UD PRN SALINE FLUSH Anesthesia Focused Assessment* Temperature: 98.6 F Pulse Rate: 68 Blood Pressure: 112/56 Respiratory Rate: 16 Pulse Ox: 98 Airway Assessment Mouth opens: >3 cm Mallampati Score: II Teeth Condition: Intact Neck Range of motion (ROM): Full ROM Focused Labs Anesthesia Preop lab: CBC WBC 4.3 K/mm3 (4.4-11.0) L 03/16/24 05:12 RBC 3.49 M/mm3 (4.2-5.4) L 03/16/24 05:12 Hgb 8.7 g/dL (12.0-15.0) L 03/16/24 05:12 Hct 28.7 % (37-47) L 03/16/24 05:12 Plt Count 283 K/mm3 (150-450) 03/16/24 05:12 CHEMISTRY Potassium 3.3 mmol/L (3.5-5.1) L 03/16/24 05:12 Sodium 144 mmol/L (136-145) 03/16/24 05:12 BUN 8 mg/dL (7-18) 03/16/24 05:12 Creatinine 0.46 mg/dL (0.55-1.02) L 03/16/24 05:12 Glucose 103 mg/dL (74-106) 03/16/24 05:12 POC Glucose 117 mg/dL (70-110) H 12/11/14 17:21 COAG HCG, Quant 69793 mIU/mL (1-3) H 07/22/23 22:55 Urine Test Positive Negative H 03/16/24 05:28 Review of Systems (Anesthesia) ROS Narrative System reviewed and no additional complaints, except as documented. [facility] Medical History (Updated 03/16/24 @ 05:[address] Marichuy Mejia, DO) Gave to child recently Medical History no medical history Home Medications ?Medication ?Instructions ?Recorded ?Last Taken ?Type acetaminophen 500 mg tablet 1,000 mg (2 x 500 mg) PO Q6H PRN 03/08/24 Unknown Rx PRN Pain 1-10 Or Fever #30 tabs ibuprofen 600 mg tablet 600 mg PO Q6H PRN PRN Pain Score 03/08/24 Unknown Rx 1-10 #30 tabs Allergy/AdvReac Type Severity Reaction Status Date / Time No Known Allergies Allergy Verified 03/16/24 00:23 Social History Smoking Status: Never smoker
[2024-03-16] MEDS: miSOPROStol 200 MCG Tablet (07:30)
--- NOTE | 2024-03-16 07:46 | PCM.OPRPT ---
Problems Associated Problem List Diagnoses (1) Retained products of conception: (2) Abdominal pain: (3) Pyrexia: Report of Operation Date of Procedure: 03/16/24 Pre-Operative Diagnosis: Retained products of conception after a vaginal delivery, chorioamnionitis Post-Operative Diagnosis: As above Surgery/Procedure Performed:: Suction D&C under ultrasound guidance Description of Surgical Findings:: Enlarged uterus about 12-14 cm in size Surgeon: Marichuy Mejia stock control supervisor: None Type of Anesthesia: MAC Special Medications: None Specimen's removed: Products of conception Drains: None Estimated Blood Loss (mL): 600 Fluids Replaced: 1000 mL Description of Procedure: The patient was taken to the operating room where MAC anesthesia was induced. She was prepped and draped in the dorsal lithotomy position using yellow fin stirrups. A weighted speculum was placed in the vagina to expose the cervix. The anterior lip of the cervix was grasped with single-tooth tenaculum. The cervix was serially dilated to accommodate a size 12 mm suction curettage. Several passes were made under ultrasound guidance with the suction curettage with removal of retained products of conception. The suction was no longer producing a suction, and staff attended to the suction curettage device. A sharp curettage was performed along all 4 uterine flowers with a scant amount of products of conception noted in the right cornua under ultrasound guidance. Once the suction curettage was functioning, additional passes were made with the size 12 mm suction curettage for the remaining tissue under ultrasound guidance. The suction curettage was then not providing suction once again, and the staff attended to the section device. On ultrasound there was blood present within the uterus. Assistance from the other OB provider environmental research project manager was called out to have her present to the operating room, but the other physician on-call was unable to present for assistance given another emergency. A sharp curettage was performed with removal of scant pieces of products of conception. The suction curettage was not functioning at this time. Additional passes were made with a sharp curettage until no tissue was remaining and a good uterine cry was felt. No retained products of conception were noticed on transabdominal ultrasound and bleeding was hemostatic. 800 mcg of rectal Cytotec was placed. Sponge counts were correct and the patient was taken to recovery room in stable condition. Grafts/Implants Used: None Complications None Admit VTE Documentation VTE Present on Admission: No VTE Mechan Device Prophylaxis: SCD's
--- NOTE | 2024-03-16 08:04 | PCM.POST.ANE ---
Anesthesia: Postop Eval I Current Vital Signs Temperature: 97.3 F Pulse Rate: 108 Blood Pressure: 103/62 Respiratory Rate: 17 Pulse Ox: 95 Oxygen Delivery Method: Room Air Assessment Airway patent: Yes Spontaneous unlabored respirations: Yes Mental status: Asleep nausea: No Vomiting: No Anesthesia Complication: No Fluid Hydration Crystalloid volume administer (ml): 1,000 Total IV fluid infused: 1,000 Progress Note Anesthesia document: Postop Eval 1 completed: Yes
--- NOTE | 2024-03-16 08:05 | POSTOPAN2_ITS ---
Anesthesia Postop Eval I Sum Postop Eval Completion status Anesthesia document: Postop Eval 1 completed: Yes Anesthesia Postop Eval I Summary Anesthesia Postop Eval I Summary: Anesthesia Postop Eval I: Assessment Summary Airway patent Yes 03/16/24 08:05 SENIOR ANALYST DEVELOPER.JCOTE Spontaneous unlabored Yes 03/16/24 08:05 SENIOR ANALYST DEVELOPER.JCOTE respirations Mental status Asleep 03/16/24 08:05 SENIOR ANALYST DEVELOPER.JCOTE nausea No 03/16/24 08:05 SENIOR ANALYST DEVELOPER.JCOTE Vomiting No 03/16/24 08:05 SENIOR ANALYST DEVELOPER.JCOTE Anesthesia Postop Eval I: Fluid Summary Crystalloid volume administer 1,000 03/16/24 08:05 SENIOR ANALYST DEVELOPER.JCOTE (ml) Colloids volume administered ( ml) Blood Product volume administered (ml) Total IV fluid infused 1,000 03/16/24 08:05 SENIOR ANALYST DEVELOPER.JCOTE Anesthesia Postop Eval I: Summary Notes Anesthesia Complication No 03/16/24 08:05 SENIOR ANALYST DEVELOPER.JCOTE Anesthesia Complication Comment: Post-operative progress note Anesthesia: Postop Eval II Evaluation Mental status: Asleep Pain Level: 0 nausea: No Vomiting: No Complications Anesthesia Complication: No
--- NOTE | 2024-03-16 08:05 | PCM.POSTANE2 ---
Anesthesia Postop Eval I Sum Postop Eval Completion status Anesthesia document: Postop Eval 1 completed: Yes Anesthesia Postop Eval I Summary Anesthesia Postop Eval I Summary: Anesthesia Postop Eval I: Assessment Summary Airway patent Yes 03/16/24 08:05 HOOKING MACHINE OPERATOR.JCOTE Spontaneous unlabored Yes 03/16/24 08:05 HOOKING MACHINE OPERATOR.JCOTE respirations Mental status Asleep 03/16/24 08:05 HOOKING MACHINE OPERATOR.JCOTE nausea No 03/16/24 08:05 HOOKING MACHINE OPERATOR.JCOTE Vomiting No 03/16/24 08:05 HOOKING MACHINE OPERATOR.JCOTE Anesthesia Postop Eval I: Fluid Summary Crystalloid volume administer 1,000 03/16/24 08:05 HOOKING MACHINE OPERATOR.JCOTE (ml) Colloids volume administered ( ml) Blood Product volume administered (ml) Total IV fluid infused 1,000 03/16/24 08:05 HOOKING MACHINE OPERATOR.JCOTE Anesthesia Postop Eval I: Summary Notes Anesthesia Complication No 03/16/24 08:05 HOOKING MACHINE OPERATOR.JCOTE Anesthesia Complication Comment: Post-operative progress note Anesthesia: Postop Eval II Evaluation Mental status: Asleep Pain Level: 0 nausea: No Vomiting: No Complications Anesthesia Complication: No
--- NOTE | 2024-03-16 08:24 | POSTOPAN2_ITS ---
Anesthesia Postop Eval I Sum Postop Eval Completion status Anesthesia document: Postop Eval 1 completed: Yes Anesthesia Postop Eval I Summary Anesthesia Postop Eval I Summary: Anesthesia Postop Eval I: Assessment Summary Airway patent Yes 03/16/24 08:05 ANIMAL DAMAGE CONTROL AGENT.JCOTE Spontaneous unlabored Yes 03/16/24 08:05 ANIMAL DAMAGE CONTROL AGENT.JCOTE respirations Mental status Asleep 03/16/24 08:05 ANIMAL DAMAGE CONTROL AGENT.JCOTE nausea No 03/16/24 08:05 ANIMAL DAMAGE CONTROL AGENT.JCOTE Vomiting No 03/16/24 08:05 ANIMAL DAMAGE CONTROL AGENT.JCOTE Anesthesia Postop Eval I: Fluid Summary Crystalloid volume administer 1,000 03/16/24 08:05 ANIMAL DAMAGE CONTROL AGENT.JCOTE (ml) Colloids volume administered ( ml) Blood Product volume administered (ml) Total IV fluid infused 1,000 03/16/24 08:05 ANIMAL DAMAGE CONTROL AGENT.JCOTE Anesthesia Postop Eval I: Summary Notes Anesthesia Complication No 03/16/24 08:05 ANIMAL DAMAGE CONTROL AGENT.JCOTE Anesthesia Complication Comment: Post-operative progress note Anesthesia: Postop Eval II Evaluation Mental status: Awake Pain Level: 0 nausea: No Vomiting: No Progress Note Post-operative progress note: recieving fluid bolus 500 cc for mild low bp, chck h/h Complications Anesthesia Complication: No
--- NOTE | 2024-03-16 08:24 | PCM.POSTANE2 ---
Anesthesia Postop Eval I Sum Postop Eval Completion status Anesthesia document: Postop Eval 1 completed: Yes Anesthesia Postop Eval I Summary Anesthesia Postop Eval I Summary: Anesthesia Postop Eval I: Assessment Summary Airway patent Yes 03/16/24 08:05 AIR TWIST OPERATOR.JCOTE Spontaneous unlabored Yes 03/16/24 08:05 AIR TWIST OPERATOR.JCOTE respirations Mental status Asleep 03/16/24 08:05 AIR TWIST OPERATOR.JCOTE nausea No 03/16/24 08:05 AIR TWIST OPERATOR.JCOTE Vomiting No 03/16/24 08:05 AIR TWIST OPERATOR.JCOTE Anesthesia Postop Eval I: Fluid Summary Crystalloid volume administer 1,000 03/16/24 08:05 AIR TWIST OPERATOR.JCOTE (ml) Colloids volume administered ( ml) Blood Product volume administered (ml) Total IV fluid infused 1,000 03/16/24 08:05 AIR TWIST OPERATOR.JCOTE Anesthesia Postop Eval I: Summary Notes Anesthesia Complication No 03/16/24 08:05 AIR TWIST OPERATOR.JCOTE Anesthesia Complication Comment: Post-operative progress note Anesthesia: Postop Eval II Evaluation Mental status: Awake Pain Level: 0 nausea: No Vomiting: No Progress Note Post-operative progress note: recieving fluid bolus 500 cc for mild low bp, chck h/h Complications Anesthesia Complication: No
[2024-03-16 08:47] LABS: Hematocrit 22.5 % (37-47); Hemoglobin 6.6 g/dL (12.0-15.0)
[2024-03-16] MEDS: DiphenhydrAMINE 50 MG/ML Syringe 25 MG IV (09:45)
--- NOTE | 2024-03-16 09:45 | NURSING ---
0956- IBCLC called and spoke with MS3 RN, who previously left a voicemail for . Reports pt. got cytotec, and will receive Gentamycin and Cleocin and asked if pt needed to pump and dump her breastmilk. Murphy's Medications and Mother's Milk 2022 referenced, gentamycin (L2), cleocin (L2), and cytotec (L2) are all listed as compatible with . IBCLC told RN that patient does NOT need to pump and dump, and can save or use her milk as normal. RN reports pt. is still in recovery, but IBCLC will stop and see later today to make sure there are no further questions or concerns.
[2024-03-16 09:48] LABS: International Normalized Ratio 1.5; Partial Thromboplast Time 30.2 Seconds (24.1-36.2); Prothrombin Time (Protime)PT. 18.1 SECONDS (11.7-14.9)
[2024-03-16 09:49] LABS: Fibrinogen 272 mg/dl (203-444)
[2024-03-16 12:06] LABS: Absolute Lymphocyte Count 0.31 X10^3/uL (0.83-4.51); Absolute Neutrophil Count 6.3 X10^3/uL (2.0-7.7); Basophil# 0.01 X10^3/uL; Basophil% 0.1 % (0-1); Hematocrit 22.7 % (37-47); Lymphocyte # 0.31 X10^3/ul (0.83-4.51); Lymphocyte % 4.6 % (19-41); Mean Corp Hgb Conc 30.8 g/dL (32-36); Mean Corpuscular Hgb 25.5 pg (27.0-32.0); Mean Corpuscular Volume 82.8 fL (81-99); Mean Platelet Vol. 9.2 fl (6.2-12.0); Monocyte# 0.11 X10^3/uL; Monocyte% 1.6 % (0-10); NRBC Flagged by Analyzer 0 % (0-5); Neutrophil # 6.31 X10^3/uL (2.7-7.7); Neutrophil % 92.8 % (47-70); POSITIVE DIFFERENTIAL YES; Platelet Count 282 K/mm3 (150-450); RBC Distribution Width SD 44.9 fl (35.1-43.9); Red Blood Count 2.74 M/mm3 (4.2-5.4); White Blood Count 6.8 K/mm3 (4.4-11.0)
[2024-03-16] MEDS: Gentamicin IV 270 MG in Dextrose 5%-Water (50mL Bag) 50 ML 100 MG IVPB (12:40)
--- NOTE | 2024-03-16 15:16 | CASEMGMT ---
TRISTA GONSALEZ Assessment: Face to Face with pt for initial transition planning/care coordination assessment. RN WALLACE introduced self and role at [facility], pt voices understanding and consents to assessment. Pt sitting up in bed in no distress with several family members at bedside. Pt agreeable to answering DC planning questions with visitors in room. Pt is A&O x4 and answers all questions appropriately at this time. Care providers, pharmacy, and demographics verified/updated. Admitting Dx: retained products of conception PCP: J Carlos Specialists: Denies [facility]erred [facility]acy[facility] Prescription Benefit: yes LNOK: Esme Womack - GM, [place] - SO Living Arrangements: Pt lives with SO and 3 children. States I with ADLs and IADLs. Transportation: Pt drives self and denies concerns with transportation. SO will transport pt home at DC. DME: Denies HHC/SNF: Denies Hx of. Pt states no concerns with going home at time of dc. Pt states no further concerns/needs. CM to follow. Advised pt to ask CM if any further question/concerns/needs arise, voices understanding. Pt Goal: Home Plan: Home, will follow plan of care. Lindsey WESTON CM
--- NOTE | 2024-03-16 16:08 | NURSING ---
1450- IBCLC at bedside rounding with family. Pt. reports things have been going well, last pumped at 1300 and got about 6oz. Milk being stored in [facility] breast milk fridge, and FOB takes it home as needed to give to infant. Pt. denies questions or concerns at this time. IBCLC informed pt. she can always call down to or [facility] if questions or concerns arise. Verbalized understanding.
[2024-03-16] MEDS: Ibuprofen 600 MG Tablet PO ×2 (16:34→22:36)
[2024-03-16 17:13] LABS: Absolute Lymphocyte Count 0.55 X10^3/uL (0.83-4.51); Absolute Neutrophil Count 5.4 X10^3/uL (2.0-7.7); Hematocrit 26.9 % (37-47); Hemoglobin 8.5 g/dL (12.0-15.0); Lymphocyte # 0.55 X10^3/ul (0.83-4.51); Lymphocyte % 8.9 % (19-41); Mean Corp Hgb Conc 31.6 g/dL (32-36); Mean Corpuscular Hgb 26.7 pg (27.0-32.0); Mean Corpuscular Volume 84.6 fL (81-99); Mean Platelet Vol. 9.1 fl (6.2-12.0); Monocyte# 0.17 X10^3/uL; Monocyte% 2.7 % (0-10); NRBC Flagged by Analyzer 0 % (0-5); Neutrophil # 5.43 X10^3/uL (2.7-7.7); Neutrophil % 87.8 % (47-70); POSITIVE DIFFERENTIAL YES; Platelet Count 264 K/mm3 (150-450); RBC Distribution Width CV 15.4 % (11.6-14.6); Red Blood Count 3.18 M/mm3 (4.2-5.4); White Blood Count 6.2 K/mm3 (4.4-11.0)
[2024-03-16 17:33] LABS: International Normalized Ratio 1.4; Prothrombin Time (Protime)PT. 16.7 SECONDS (11.7-14.9)
[2024-03-16 17:34] LABS: Fibrinogen 282 mg/dl (203-444); Partial Thromboplast Time 35.2 Seconds (24.1-36.2)
[2024-03-17 04:58] VITALS: BP 109/61; PULSE 79; RESP 16; TEMP 36.9; O2SAT 97
[2024-03-17] MEDS: 0.9% Normal Saline (1000mL) 1,000 ML 125 ML IV (05:04)
[2024-03-17] MEDS: Clindamycin 900 MG/50 ML BAG 75 MG IV (05:04)
[2024-03-17 06:13] LABS: Absolute Lymphocyte Count 1.47 X10^3/uL (0.83-4.51); Absolute Neutrophil Count 2.6 X10^3/uL (2.0-7.7); Basophil# 0.01 X10^3/uL; Basophil% 0.2 % (0-1); Eosinophil# 0.02 X10^3/uL; Eosinophils% 0.5 % (0-5); Hematocrit 24.9 % (37-47); Hemoglobin 7.8 g/dL (12.0-15.0); Lymphocyte # 1.47 X10^3/ul (0.83-4.51); Lymphocyte % 33.8 % (19-41); Mean Corp Hgb Conc 31.3 g/dL (32-36); Mean Corpuscular Hgb 26.6 pg (27.0-32.0); Mean Platelet Vol. 9.6 fl (6.2-12.0); Monocyte# 0.25 X10^3/uL; Monocyte% 5.7 % (0-10); NRBC Flagged by Analyzer 0 % (0-5); Neutrophil # 2.58 X10^3/uL (2.7-7.7); Neutrophil % 59.3 % (47-70); Platelet Count 240 K/mm3 (150-450); RBC Distribution Width CV 15.2 % (11.6-14.6); RBC Distribution Width SD 47.2 fl (35.1-43.9); Red Blood Count 2.93 M/mm3 (4.2-5.4); White Blood Count 4.4 K/mm3 (4.4-11.0)
[2024-03-17] MEDS: Ibuprofen 600 MG Tablet PO (06:33)
--- NOTE | 2024-03-17 08:27 | DS.PCM_ITS ---
Providers Date of Admission: 03/16/24 Date of Discharge: 03/17/24 Primary Care Physician: Niki Whitman NP-C Consultations 03/16/24 05:44 Consult: Felt Finishing Supervisor Routine Consulting Provider: Patrica Bergeron NP Reason for Consult: Pumping with IV antibiotics. Admitted for endometritis EMERGENT Consult: No MD Notified: Yes Date Notified: 03/16/24 Time Notified: 05:45 Method of Notification: Verbal Reason For Visit: RETAINED PRODUCTS OF CONCEPTION Diagnosis Discharge Diagnosis (1) Retained products of conception: Status: Acute (2) Abdominal pain: Status: Acute Code(s): R10.9 - Unspecified abdominal pain (3) Pyrexia: Status: Acute Code(s): R50.9 - Fever, unspecified Medications at Discharge Home Medications acetaminophen 500 mg tablet 1,000 mg (2 x 500 mg) PO Q6H PRN PRN Pain 1-10 Or Fever 10 days #30 tabs 03/17/24 doxycycline hyclate 100 mg capsule 100 mg PO BID 7 days #14 caps 03/17/24 ibuprofen 600 mg tablet 600 mg PO Q6H PRN PRN Pain Score 1-10 10 days #30 tabs 03/17/24 Hospital Course Operations - (Dilation and curettage on 03/16/24) Procedures None Summary of Care Provided Minutes Spent on Discharge: 23 Hospital Course: 23-year-old female status post vaginal delivery on 03/07/2024 presented to the emergency room on 03/16/2024 complaining of vaginal bleeding and fever. She was evaluated in the emergency room by . Was well found to have retained products of conception and endometritis. She was taken for a D&C. She had significant blood loss at that procedure. Over this resulted in superimposed acute on chronic anemia. Her hemoglobin was in the anemic range when she arrived. She then received IV antibiotics and 2 units of blood postoperatively. On 03/17/2024 her hemoglobin was stable. She denied any chest pain, shortness of breath, fevers chills, lightheadedness or dizziness. Her bleeding was minimal. She was able to ambulate and tolerate regular diet without difficulty. She desired discharge home. She was discharged home with oral doxycycline along with routine pain control measures. She is to follow-up in the office in 1 to 2 weeks as scheduled or as needed. Physical Exam Narrative Awake, alert, no acute distress Skin warm dry and intact Extremities no clubbing cyanosis or edema, symmetrical Abdomen soft, nontender nondistended. Uterus firm, no significant tenderness. Very small and in the pelvis. CYANIDE FURNACE OPERATOR: Normal external genitalia, normal urethra and anus. Normal introitus. Patient did complain of some pain near the introitus no lacerations or bleeding or lesions were noted. Weight / BMI Weight Weight: 92.9 kg Body Mass Index (BMI) 35.2 ABG / Lab / Microbiology Data 03/17/24 06:02 03/16/24 05:12 Laboratory: Laboratory Results - last 24 hr 03/16/24 08:28: Hgb 6.6 L, Hct 22.5 L 03/16/24 09:14: Blood Type A POSITIVE, Antibody Screen NEGATIVE, Crossmatch See Detail 03/16/24 09:20: PT 18.1 H, INR 1.5, APTT 30.2, Fibrinogen 272 03/16/24 09:40: PT Cancelled, INR Cancelled, APTT Cancelled, Fibrinogen Cancelled 03/16/24 11:44: WBC 6.8, RBC 2.74 L, Hgb 7.0 L, Hct 22.7 L, MCV 82.8, MCH 25.5 L , MCHC 30.8 L, RDW Std Deviation 44.9 H, RDW Coeff of Jessika 15.0 H, Plt Count 282, MPV 9.2, Immature Gran % (Auto) 0.900, Neut % (Auto) 92.8 H, Lymph % (Auto) 4.6 L, [place] % (Auto) 1.6, Eos % (Auto) 0.0, Baso % (Auto) 0.1, Absolute Neuts (auto) 6.3, Absolute Lymphs (auto) 0.31 L, Nucleated RBC % 0 03/16/24 17:04: WBC 6.2, RBC 3.18 L, Hgb 8.5 L, Hct 26.9 L, MCV 84.6, MCH 26.7 L , MCHC 31.6 L, RDW Std Deviation 47.0 H, RDW Coeff of Jessika 15.4 H, Plt Count 264, MPV 9.1, Immature Gran % (Auto) 0.600, Neut % (Auto) 87.8 H, Lymph % (Auto) 8.9 L, [place] % (Auto) 2.7, Eos % (Auto) 0.0, Baso % (Auto) 0.0, Absolute Neuts (auto) 5.4, Absolute Lymphs (auto) 0.55 L, Nucleated RBC % 0, PT 16.7 H, INR 1.4, APTT 35.2, Fibrinogen 282 03/17/24 06:02: WBC 4.4, RBC 2.93 L, Hgb 7.8 L, Hct 24.9 L, MCV 85.0, MCH 26.6 L , MCHC 31.3 L, RDW Std Deviation 47.2 H, RDW Coeff of Jessika 15.2 H, Plt Count 240, MPV 9.6, Immature Gran % (Auto) 0.500, Neut % (Auto) 59.3, Lymph % (Auto) 33.8, [place] % (Auto) 5.7, Eos % (Auto) 0.5, Baso % (Auto) 0.2, Absolute Neuts (auto) 2.6, Absolute Lymphs (auto) 1.47, Nucleated RBC % 0 D/C Instructions Discharge Diet: No restrictions May resume sexual activity in: 6 weeks Call your doctor if your incision/area has: Continuous Slow Oozing, Sudden Increased Bleeding, Foul Smelling Discharge and Swelling at the incision site Call your doctor if you observe: Fever of 101 or Higher and Inability to urinate Please Follow Up With: Marichuy Mejia DO When: Follow up with our office with a provider in 1-2 and 6 weeks or as needed or send a [employer] message as needed. Meaningful Use Info Meaningful Use Meaningful Use Diagnoses (Choose all that apply): None applicable Ischemic Stroke Statin Dosing Therapy Reference: STATIN DOSE THERAPY REFERENCE: * Patients > 75 years receive moderate or high dose statin therapy. * Patients 75 years or YOUNGER should receive HIGH intensity statin dose unless contraindicated. You will be required to document reason for non-treatment if statin daily dose does not meet guidelines. HIGH DOSE STATIN THERAPY DAILY Atorvastatin > than or = to 40 mg Rosuvastatin > than or = to 20 mg Amlodipine + Atorvastatin > than or = to 2.5/40 mg Ezetimibe + Simvastatin 10/80 mg Simvastatin 80mg Discharge Plan Admission Admit Date/Time: 03/16/24 03:08 Primary Reason for Your Visit: D&C for retained products of conception Attending Provider: Marichuy Mejia Primary Care Provider: Niki Whitman NP Consulting Providers: Patrica Bergeron NP Discharge Orders/Prescriptions Prescriptions: New doxycycline hyclate 100 mg capsule 100 mg PO BID 7 Days Qty: 14 0RF Continued acetaminophen 500 mg Tablet 1,000 mg PO Q6H PRN PRN (Reason: Pain 1-10 Or Fever) 10 Days Qty: 30 0RF ibuprofen 600 mg Tablet 600 mg PO Q6H PRN PRN (Reason: Pain Score 1-10) 10 Days Qty: 30 0RF Referrals / Follow Up: Niki Whitman NP, COP BREAKER-C [Primary Care Provider] - Disposition Disposition (needs filled in before D/C Order can be placed): Home, Self Care
[2024-03-17] MEDS: Sodium Ferric Gluconat/Sucrose 250 MG in 0.9% Normal Saline (250mL Bag) 250 ML 135 MG IV (08:33)
[2024-03-17 08:40] VITALS: BP 111/54; PULSE 62; RESP 16; TEMP 37; O2SAT 96
== END 2024-03-17 14:03 | disposition home or self-care (01) | DRG 548 ==
LOC: ED 02:50 → MS3 03:25
PROVIDERS: Anesthesiology; Obstetrics & Gynecology; Admitting Provider Obstetrics & Gynecology; Emergency Provider Emergency Medicine; PCP Nurse Practitioner Adult Health; Visit Provider Obstetrics & Gynecology
PROC: 10D17ZZ Extraction of Products of Conception, Retained, Via Natural or Artificial Opening (ICD-10-PCS; principal; 2024-03-16 06:00)
DX: O73.1 Retained portions of placenta and membranes, without hemorrhage (principal); D62 Acute posthemorrhagic anemia; O86.12 Endometritis following delivery; O90.81 Anemia of the puerperium
CPT/HCPCS: 36415; 76830; 80053; 81025; 85014; 85018; 85025; 85384; 85610; 85730; 86850; 86900; 86901; 86920; 86922; 87040; 87086; 88305; 99284; J7030; J7050; P9016; A4216; J2405; J2916